=== PATIENT | male | born 1980 | race Caucasian/White ===

== ENCOUNTER 2021-10-16 08:12 | Emergency (ER) | payer OTHER ==
[2021-10-16] MEDS ORDERED: Sodium Chloride 3 ML UD NEBULES IH ONE (08:15)
[2021-10-16] MEDS ORDERED: Racepinephrine INH Solution 2.25% IH ONE ×2 (08:15→08:17)
[2021-10-16] MEDS ORDERED: solu-MEDROL 125 MG, Sterile H2O 10 ml 2 ML IV ONE ×2 (08:15)
[2021-10-16] MEDS ORDERED: solu-MEDROL ONE (08:18)
[2021-10-16] MEDS ORDERED: Sterile H2O 10 ml IJ ONE (08:18)
[2021-10-16] MEDS ORDERED: Sodium Chloride 0.9% 1000 ML 1,000 ML ONE ×2 (08:22→10:39)
[2021-10-16] MEDS ORDERED: EPINEPHRINE 1MG/ML AMP ONE (08:22)
[2021-10-16 08:28] VITALS: O2SAT 100
[2021-10-16] MEDS ORDERED: Hydromorphone 1 mg/ml Injection ONE (08:40)
[2021-10-16 08:42] LABS: A-aADO2 476; ABG HEMOGLOBIN 15.3; ABG POTASSIUM 3.9 (3.5-5.1); ABG SITE LEFT RADIAL; ALLEN TEST OK? yes; ARTERIAL BLD GAS O2 SATURATION 99.8 % (95-100); ARTERIAL BLOOD GAS FIO2 100 %; ARTERIAL BLOOD GAS PCO2 36 mmHg (35-45); ARTERIAL BLOOD GAS PO2 192 mmHg (75-100); ARTERIAL BLOOD GAS pH 7.46 (7.35-7.45); CARBOXYHEMOGLOBIN 1.2 % THgb (0.0-6.9); HCO3- 25.6 (22-28); HGB O2 SAT 97.5 g/dF (94-100); Methhemoglobin 1.2 % (1.4-1.5)
--- NOTE | 2021-10-16 08:42 | XRAY ---
Exam: AP upright portable chest film from 10/16/2021. Comparison: None. Indication: Shortness of breath. Findings: Respiratory tubing overlying the left upper lung field and external monitoring devices overlying the upper abdomen are partially seen. The heart size is normal. The jc and mediastinal structures appear unremarkable. Slight nonspecific accentuation of interstitial markings are seen within the infrahilar projections. However, I do not see an airspace infiltrate or consolidation. Minimal transverse linear density is seen within the peripheral right midlung field which may relate to the minor fissure or scant linear atelectasis/scarring. Subtle bullous changes are seen within the lung apices. Is this patient a cigarette smoker? There is minimal biapical pleural thickening/scarring. No pneumothorax or pleural effusion is seen. No acute osseous process is seen. Impression: 1. Slight nonspecific accentuation of the interstitial markings within the infrahilar lung zones. However, no air space infiltrates or other acute cardiopulmonary disease is seen. 2. Other incidental findings, as discussed above.
[2021-10-16 08:45] VITALS: BP 147/88
--- NOTE | 2021-10-16 08:46 | XRAY ---
Exam: Portable two-view series of the soft tissues of the neck from 10/16/2021. Comparison: None. Indication: Shortness of breath; rule out airway obstruction. Findings: Portable AP and lateral images of the soft tissues of the neck were obtained. The mouth is edentulous. The hypopharynx and epiglottis appear unremarkable. No prevertebral soft tissue swelling is seen. The glottic and subglottic airway appear unremarkable. No radiopaque soft tissue foreign body is seen. Calcification within the thyroid and cricoid cartilages is seen. No acute osseous process is seen. Impression: 1. No significant plain film abnormality detected.
[2021-10-16] MEDS ORDERED: Propofol 1000 mg/100 ml Bottle 100 ML IV PRN (08:49)
[2021-10-16] MEDS ORDERED: FENTANYL 500 MCG/10 ML VIAL 1,500 MCG in Sodium Chloride 0.9% 150 ML 120 ML IV PRN (08:49)
[2021-10-16] MEDS ORDERED: Versed 2 MG/2 ML Injection IV ONE (08:51)
[2021-10-16 09:21] LABS: Absolute Neutrophil Ct (ANC) 12.04 (1.4-6.9); Basophil (Absolute #) 0.03 (0-0.4); Eosinophil % 0.4 % (0.00-5.0); Eosinophil (Absolute #) 0.07 (0-0.5); Hematocrit 44.9 % (42-50); Hemoglobin 15.2 gm/dl (12.5-18.0); Lymphocyte (Absolute #) 3.02 (1.0-4.6); Lymphocytes % 18.5 % (24.0-44.0); Mean Cell Volume 84.7 fl (78-100); Mean Corpuscular Hemoglobin 28.7 pg (26-32); Mean Corpuscular Hgb Concent. 33.9 g/dl (32-36); Mean Platelet Volume 9.5 fl (7.5-11.0); Monocytes % 7.3 % (0.0-12.0); Neutrophil % 73.6 % (36.0-66.0); Platelet Count 255 K/mm3 (150-450); Red Cell Distribution Width 13.3 % (11.5-14.0); White Blood Count 16.4 K/mm3 (4.0-10.5)
[2021-10-16 09:29] LABS: ALBUMIN 4.8 g/dL (3.5-5.0); ALKALINE PHOSPHATASE 107 U/L (38-126); ANION GAP 16.2 MEQ/L (5-15); BLOOD UREA NITROGEN 8 mg/dL (9-20); CHLORIDE 102 mmol/L (98-107); Calcium 9.5 mg/dL (8.4-10.2); Carbon Dioxide 27 mmol/L (22-30); Creatinine 1 0.67 mg/dL (0.66-1.25); EST GLOMERULAR FILTRATION RATE > 60.0 ML/MIN; Glucose 122 mg/dL (74-106); Potassium 3.7 mmol/L (3.5-5.1); SGOT/AST 26 U/L (17-59); SGPT/ALT 35 U/L (0-50); SODIUM 141 mmol/L (137-145); Total Protein 7.8 g/dL (6.3-8.2)
--- NOTE | 2021-10-16 09:34 | XRAY ---
Exam: AP portable supine chest film from 0913 hours on 10/16/2021. Comparison: AP upright portable chest film from 0832 hours on 10/16/2021. Indication: ET tube placement; post NG tube placement. Findings: There has been interval placement of an endotracheal tube with the tip located about 2.4 cm superior to the luis alfredo in satisfactory position. In addition, an NG tube extends into the stomach through the gastroesophageal junction. The distal tip of the NG tube has not been included on this chest film. The heart size is normal. Some vascular calcification is seen within the aortic knob. The jc and mediastinal structures appear unremarkable. The lungs are well inflated and appear clear. Pulmonary vascularity appears within normal limits. No pneumothorax or pleural fluid is seen. No acute osseous process is seen. Impression: 1. Endotracheal tube tip appears in satisfactory position about 2.4 cm above the luis alfredo. 2. NG tube courses beyond the gastroesophageal junction into the stomach, although the tip has not been included on this chest image. 3. No acute cardiopulmonary process is seen.
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
[2021-10-16 09:45] LABS: Appearance CLEAR (CLEAR); Bilirubin NEGATIVE (NEGATIVE); Blood NEGATIVE Ery/ul (0-5); Glucose NEGATIVE (NEGATIVE); Ketones NEGATIVE (NEGATIVE); Leukocyte Esterase NEGATIVE (NEGATIVE); Mucus SLIGHT /HPF (NEGATIVE); Nitrite NEGATIVE (NEGATIVE); Protein,Urine Dip NEGATIVE (Negative); Specific Gravity 1.009 (1.005-1.025); Urobilinogen NEGATIVE mg/dL (0-1)
[2021-10-16 09:50] VITALS: PULSE 115
[2021-10-16 10:09] LABS: INFLUENZA A NEGATIVE (NEGATIVE); INFLUENZA B NEGATIVE (NEGATIVE); RESPIRATORY SYNCTIAL VIRUS NEGATIVE (Negative); SARS-CoV-2 Xpert Express NEGATIVE (NEGATIVE)
[2021-10-16] MEDS ORDERED: VERSED 5 MG/5 ML ONE (10:22)
[2021-10-16] MEDS ORDERED: BENADRYL 50 MG/ML ONE (10:29)
[2021-10-16] MEDS ORDERED: Amidate 20 MG/10 ML IV ONE (10:36)
[2021-10-16] MEDS ORDERED: Ativan 2 MG/1 ML VIAL IV ONE (10:36)
[2021-10-16] MEDS ORDERED: Ketamine HCl 50 MG/ML IV ONE (10:36)
[2021-10-16] MEDS ORDERED: VERSED 5 MG/5 ML IV ONE (10:36)
[2021-10-16] MEDS ORDERED: Quelicin Fliptop 200 MG/10 ML IV ONE (10:36)
[2021-10-16] MEDS ORDERED: Zemuron 100 MG/10 ML ONE (11:00)
== END 2021-10-16 11:23 | disposition short-term general hospital (02) ==
LOC: ED 08:12
DX: T78.3XXA Angioneurotic edema, initial encounter (principal); D72.829 Elevated white blood cell count, unspecified; R06.02 Shortness of breath; J02.9 Acute pharyngitis, unspecified; I10 Essential (primary) hypertension
CPT/HCPCS: 0241U; 31500; 36000; 36415; 36600; 51702; 70360; 71045; 80053; 81001; 82375; 82803; 84484; 85025; 87040; 93005; 93041; 94002; 94640; 94760; 94799; 96372; 96374; 96375; 99285; 99291; 99292; J0171; J0330; J1170; J1200; J2060; J2250; J2704; J2930; J3010

== ENCOUNTER 2021-11-06 10:51 | Observation (INO) | payer OTHER ==
[2021-11-06] MEDS ORDERED: Cardizem IV 50 MG/10 ML IV ONE ×2 (11:03→11:07)
[2021-11-06 11:12] LABS: Hematocrit 47.6 % (42-50); Hemoglobin 15.6 gm/dl (12.5-18.0); Mean Cell Volume 87.2 fl (78-100); Mean Corpuscular Hemoglobin 28.6 pg (26-32); Mean Corpuscular Hgb Concent. 32.8 g/dl (32-36); Mean Platelet Volume 8.6 fl (7.5-11.0); Platelet Count 478 K/mm3 (150-450); Red Blood Count 5.46 M/mm3 (4.1-5.6); Red Cell Distribution Width 14.2 % (11.5-14.0); White Blood Count 17.3 K/mm3 (4.0-10.5)
[2021-11-06 11:17] LABS: INR 0.87 (0.8-3.0); PROTIME 10.3 SECONDS (9.4-12.5)
[2021-11-06 11:20] LABS: PTT 32.7 SECONDS (25.1-36.5)
[2021-11-06 11:33] LABS: ALBUMIN 5.1 g/dL (3.5-5.0); ALKALINE PHOSPHATASE 129 U/L (38-126); ANION GAP 17.8 MEQ/L (5-15); BLOOD UREA NITROGEN 15 mg/dL (9-20); CHLORIDE 98 mmol/L (98-107); Calcium 10.8 mg/dL (8.4-10.2); Carbon Dioxide 29 mmol/L (22-30); EST GLOMERULAR FILTRATION RATE > 60.0 ML/MIN; Glucose 130 mg/dL (74-106); NT PRO BNP < 11.5 pg/mL (0-450); Potassium 4.9 mmol/L (3.5-5.1); SGOT/AST 40 U/L (17-59); SGPT/ALT 49 U/L (0-50); SODIUM 141 mmol/L (137-145); Total Protein 8.4 g/dL (6.3-8.2)
[2021-11-06 11:41] LABS: Lymphocytes 16 % (24-44); Monocyte 1 % (0.0-12.0); Neutrophils 83 % (36.-66.); Platelet Estimate NORMAL (NORMAL); Total Cells Counted 100
--- NOTE | 2021-11-06 11:43 | XRAY ---
Indication: Chest pain. Comparison: October 16, 2021. Portable chest again demonstrates normal heart, lungs, and bony thorax.
[2021-11-06] MEDS ORDERED: Zofran 4 MG/2 ML VIAL IV ONE (12:09)
[2021-11-06] MEDS ORDERED: Hydromorphone 1 mg/ml Injection IV ONE ×3 (12:09→19:14)
[2021-11-06] MEDS ORDERED: Zofran 4 MG/2 ML VIAL ONE (12:10)
[2021-11-06] MEDS ORDERED: Hydromorphone 1 mg/ml Injection ONE ×2 (12:10→15:32)
--- NOTE | 2021-11-06 13:12 | XRAY ---
Indication: Chest pain and nausea. Multiple contiguous axial images obtained through the chest using 80 cc Isovue 370 contrast and PE protocol. Comparison: None Good opacification of the pulmonary arteries to include the lobar and segmental branches. No pulmonary embolus. Heart is not enlarged. Aorta is normal in course and caliber. Small right hilar and tiny left hilar calcified nodes. No pathologic mediastinal/hilar lymphadenopathy. Lungs inflated with mild biapical subpleural cystic changes. No suspicious pulmonary mass, infiltrate, or effusion. Bony thorax intact. Limited upper abdomen demonstrates cholecystectomy clips. Impression: 1. Negative pulmonary embolus. No acute cardiopulmonary abnormalities. 2. Chronic findings including minimal biapical subpleural cystic changes and old granulomatous disease..
--- NOTE | 2021-11-06 13:46 | ERPHSYRPT ---
- History of Present Illness Historian: patient Exam Limitations: no limitations Patient Subjective Stated Complaint: chest pain x 2 days Triage Nursing Assessment: pt to ED c/o CP intermittently x 2 weeks but worse and more persistant x 2 days. rates 7/10 L lower chest. becomes sharp randomly which causes some SOB, but eases on its own after 30-60 minutes. heart sounds clear. lungs clear and equal bilaterally. Physician History: 40 yo wm w L sternal chest pain and elevated BP x2 days. Pt states that pain is 7/10, sharp, and does not radiate. He denies N/V/diaphoresis/dyspnea. Pt recently had to be intubated due to Branden inhibitor angioedema. Timing/Duration: day(s) (3 days) Activities at Onset: rest Quality: sharpness, stabbing Location: substernal Chest Pain Radiation: no radiation Severity of Pain-Max: moderate Severity of Pain-Current: moderate Modifying Factors: Worsens With: antacids, breathing, coughing, defecating, eating, exertion, lying down, morphine, movement, nitroglycerin, oxygen, palpation, rest, aspirin, sitting up, change in position Associated Symptoms: No nausea, No vomiting, No palpitations, No heartburn, No abdominal pain, No shortness of breath, No cough, No hurts to breathe, No di aphoresis, No chills, No fever, No fatigue, No weakness, No swelling/lump in chest, No syncope, No rash, No headache, No dizziness, No edema, No back pain Nitro Today/Relief: no nitro taken today Aspirin Treatment Today: no aspirin today Allergies/Adverse Reactions: propranolol Allergy (Verified 10/16/21 09:27) lisinopril Adverse Reaction (Severe, Verified 10/16/21 09:26) THROAT SWELLING Home Medications: Clonidine HCl 0.1 mg [Catapres 0.1 MG] 0.2 mg PO BID 11/06/21 [History] Cyclobenzaprine HCl 10 mg [Cyclobenzaprine 10 MG] 10 mg PO TID 11/06/21 [History] Famotidine 20 mg [Pepcid 20 MG] 20 mg PO Q12H 11/06/21 [History] Gabapentin 300 mg [Neurontin 300 mg] 600 mg PO TID 11/06/21 [History] HydrALAzine HCL 25 MG TAB [Apresoline 25 MG TABLET] 25 mg PO Q8H 11/06/21 [History] Oxycodone HCl 5 mg Ir [Oxy-IR 5 MG] 15 mg PO QID 11/06/21 [History] dilTIAZem HCl [Cardizem Cd] 180 mg PO DAILY 11/06/21 [History] Hx Tetanus, Diphtheria Vaccination/Date Given: Yes Hx Influenza Vaccination/Date Given: Yes Hx Pneumococcal Vaccination/Date Given: No Immunizations Up to Date: Yes Travel Risk - International Travel Have you traveled outside of the country in past 3 weeks: No - Coronavirus Screening Are you exhibiting any of the following symptoms?: No Close contact with a COVID-19 positive Pt in past 14-21 Days: No - Vaccine Status Have you recieved a Covid-19 vaccination: Yes 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 - Vaccination Dates Date of 2cond Vaccination (if applicable): UNKNOWN - Review of Systems Constitutional: No Symptoms Eyes: No Symptoms Ears, Nose, & Throat: No Symptoms Respiratory: No Symptoms Cardiac: No Symptoms, Chest Pain Abdominal/Gastrointestinal: No Symptoms Genitourinary Symptoms: No Symptoms Musculoskeletal: No Symptoms Skin: No Symptoms Neurological: No Symptoms Psychological: No Symptoms Endocrine: No Symptoms Hematologic/Lymphatic: No Symptoms Immunological/Allergic: No Symptoms - Past Medical History Pertinent Past Medical History: Yes Cardiac History: Hypertension Musculoskeletal History: Other Other Medical History: SPINAL INJURY. angioedema r/t lisinopril, intubated and tx to [place] - Past Surgical History Past Surgical History: Yes Gastrointestinal: Other Other Surgical History: COLOSECTOMY - Social History Smoking Status: Never smoker Exposure to second hand smoke: No Drug Use: none Patient Lives Alone: No Significant Family History: no pertinent family hx - Nursing Vital Signs Nursing Vital Signs: Initial Vital Signs Temperature 97.7 F 11/06/21 10:52 Pulse Rate 139 H 11/06/21 10:52 Respiratory Rate 16 11/06/21 10:52 Blood Pressure 126/107 11/06/21 10:52 O2 Sat by Pulse Oximetry 97 11/06/21 10:52 Pain Scale Pain Intensity 6 Tachy - Physical Exam General Appearance: no apparent distress, anxiety Eye Exam: PERRL/EOMI, eyes nml inspection Ears, Nose, Throat Exam: normal ENT inspection, TMs normal, pharynx normal, moist mucous membranes Neck Exam: normal inspection, non-tender, supple, full range of motion, No meni ngismus, No mass, No Brudzinski, No Kernig's Respiratory Exam: normal breath sounds, lungs clear, airway intact, No chest tenderness, No respiratory distress Cardiovascular Exam: tachycardia, capillary refill <2 sec, No murmur Gastrointestinal/Abdomen Exam: soft, normal bowel sounds, No tenderness Back Exam: normal inspection, normal range of motion, No CVA tenderness Extremity Exam: normal inspection, normal range of motion Neurologic Exam: alert, oriented x 3, cooperative, 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, normal mood/affect, nml cerebellar function, sensation nml, No motor deficits, No sensory deficit Skin Exam: normal color, warm, dry Lymphatic Exam: No adenopathy SpO2 Interpretation: normal SpO2: 97 O2 Delivery: Room Air - Course Nursing assessment & vital signs reviewed: Yes EKG Interpreted by Me: RATE (Sinus tach/[id number]/LVH/Normal QT-QTc/[place]/No acute ST changes) - Radiology Exams Chest X-ray Interpretation: Discussed w/ radiologist (CXR WNL) - CT Exams Chest CT Interpretation: Discussed w/radiologist (No PE or AD) Ordered Tests: Medication Summary Discontinued Medications Generic Name Dose Route Start Last Admin Trade Name Freq PRN Reason Stop Dose Admin Acetaminophen 650 mg 11/06/21 19:00 Acetaminophen 325 Mg Tablet PO 12/06/21 18:59 Q4H PRN PRN PAIN AND/OR FEVER Al Hydrox/Mg Hydrox/Simethicone 30 ml 11/06/21 19:00 Mag Hydrox/Al Hydrox/Simeth 30 Ml Udcup PO 12/06/21 18:59 Q4H PRN PRN INDIGESTION Clonidine 0.3 mg 11/06/21 14:14 11/06/21 14:34 Clonidine Hcl 0.1 Mg Tablet PO 11/06/21 14:15 0.3 mg STAT ONE Administration Clonidine Confirm 11/06/21 14:32 Clonidine Hcl 0.1 Mg Tablet Administered 11/06/21 14:33 Dose 0.3 mg .ROUTE .STK-MED ONE Clonidine 0.2 mg 11/06/21 22:52 11/07/21 11:13 Clonidine Hcl 0.1 Mg Tablet PO 12/06/21 22:51 0.2 mg BID BECKY Administration Cyclobenzaprine HCl 10 mg 11/06/21 22:52 11/07/21 13:35 Cyclobenzaprine Hcl 10 Mg Tablet PO 12/06/21 22:51 10 mg TID BECKY Administration Diltiazem HCl 15 mg 11/06/21 11:03 11/06/21 11:09 Diltiazem Hcl Iv 5 Mg/Ml Vial IV 11/06/21 11:04 15 mg STAT ONE Administration Diltiazem HCl Confirm 11/06/21 11:07 Diltiazem Hcl Iv 5 Mg/Ml Vial Administered 11/06/21 11:08 Dose 50 mg IV .STK-MED ONE Diltiazem HCl 180 mg 11/07/21 10:00 11/07/21 11:13 Diltiazem Hcl 180 Mg Cap.Sr.24h PO 12/07/21 09:59 180 mg DAILY BECKY Administration Enoxaparin Sodium 40 mg 11/07/21 10:00 11/07/21 11:12 Enoxaparin Sodium 40 Mg/0.4 Ml Syringe SQ 12/07/21 09:59 40 mg DAILY BECKY Administration Famotidine 20 mg 11/06/21 22:53 11/07/21 11:12 Famotidine 20 Mg Tablet PO 12/06/21 22:52 20 mg Q12H BECKY Administration Gabapentin 600 mg 11/06/21 22:53 11/07/21 13:34 Gabapentin 300 Mg Capsule PO 12/06/21 22:52 600 mg TID BECKY Administration Hydralazine HCl 20 mg 11/06/21 14:15 11/06/21 14:34 Hydralazine Hcl 20 Mg/Ml Vial IV 11/06/21 14:16 20 mg STAT ONE Administration Hydralazine HCl Confirm 11/06/21 14:33 Hydralazine Hcl 20 Mg/Ml Vial Administered 11/06/21 14:34 Dose 20 mg .ROUTE .STK-MED ONE Hydralazine HCl 25 mg 11/06/21 22:53 11/07/21 06:04 Hydralazine Hcl 25 Mg Tablet PO 12/06/21 22:52 Not Given Q8H BECKY Hydralazine HCl 25 mg 11/07/21 14:00 11/07/21 13:35 Hydralazine Hcl 25 Mg Tablet PO 12/07/21 13:59 25 mg Q8HT BECKY Administration Hydromorphone HCl 1 mg 11/06/21 12:09 11/06/21 12:12 Hydromorphone 1 Mg/1ml Inj 1 Mg/Ml Syringe IV 11/06/21 12:10 1 mg STAT ONE Administration Hydromorphone HCl Confirm 11/06/21 12:10 Hydromorphone 1 Mg/1ml Inj 1 Mg/Ml Syringe Administered 11/06/21 12:11 Dose 1 mg .ROUTE .STK-MED ONE Hydromorphone HCl 2 mg 11/06/21 15:27 11/06/21 15:33 Hydromorphone 1 Mg/1ml Inj 1 Mg/Ml Syringe IV 11/06/21 15:28 2 mg STAT ONE Administration Hydromorphone HCl Confirm 11/06/21 15:32 Hydromorphone 1 Mg/1ml Inj 1 Mg/Ml Syringe Administered 11/06/21 15:33 Dose 2 mg .ROUTE .STK-MED ONE Hydromorphone HCl 2 mg 11/06/21 19:02 11/07/21 15:20 Hydromorphone 1 Mg/1ml Inj 1 Mg/Ml Syringe IV 11/11/21 19:01 2 mg Q4H PRN PRN Administration PAIN Hydromorphone HCl 2 mg 11/06/21 19:14 11/06/21 19:18 Hydromorphone 1 Mg/1ml Inj 1 Mg/Ml Syringe IV 11/06/21 19:15 2 mg STAT ONE Administration Hydromorphone HCl Confirm 11/07/21 05:22 Hydromorphone 1 Mg/1ml Inj 1 Mg/Ml Syringe Administered 11/07/21 05:23 Dose 2 mg .ROUTE .STK-MED ONE Sodium Chloride 1,000 mls @ 999 mls/hr 11/06/21 17:32 11/06/21 18:37 Sodium Chloride 0.9% 1000 Ml IV 11/06/21 18:32 Infused .Q1H1M STA Infusion Sodium Chloride Confirm 11/06/21 17:34 Sodium Chloride 0.9% 1000 Ml Administered 11/06/21 17:35 Dose 1,000 mls @ ud .ROUTE .STK-MED ONE Magnesium Hydroxide 30 - 60 ml 11/06/21 19:00 Magnesium Hydroxide 30 Ml Udcup PO 12/06/21 18:59 QDP PRN CONSTIPATION Ondansetron HCl 4 mg 11/06/21 12:09 11/06/21 12:12 Ondansetron Hcl 4 Mg/2 Ml Vial IV 11/06/21 12:10 4 mg STAT ONE Administration Ondansetron HCl Confirm 11/06/21 12:10 Ondansetron Hcl 4 Mg/2 Ml Vial Administered 11/06/21 12:11 Dose 4 mg .ROUTE .STK-MED ONE Ondansetron HCl 4 mg 11/06/21 19:00 11/07/21 11:12 Ondansetron Hcl 4 Mg/2 Ml Vial IV 12/06/21 18:59 4 mg Q4H PRN PRN Administration NAUSEA/VOMITING Ondansetron HCl Confirm 11/07/21 05:05 Ondansetron Hcl 4 Mg/2 Ml Vial Administered 11/07/21 05:06 Dose 4 mg .ROUTE .STK-MED ONE Oxycodone HCl 15 mg 11/06/21 22:54 11/07/21 17:53 Oxycodone Hcl 5 Mg Ir Tab PO 11/11/21 22:53 15 mg QID BECKY Administration Senna/Docusate Sodium 2 udtab 11/06/21 19:00 Senna/Docusate Sodium 1 Udtab Tablet PO 12/06/21 18:59 BID PRN PRN CONSTIPATION Lab/Rad Data: Laboratory Result Diagrams 11/06/21 10:57 11/06/21 10:57 Laboratory Results 11/06/21 11/06/21 11/06/21 Range/Units 20:05 19:17 17:15 WBC (4.0-10.5) K/mm3 RBC (4.1-5.6) M/mm3 Hgb (12.5-18.0) gm/dl Hct (42-50) % MCV (78-100) fl MCH (26-32) pg MCHC (32-36) g/dl RDW (11.5-14.0) % Plt Count (150-450) K/mm3 MPV (7.5-11.0) fl Segmented Neutrophils (36.-66.) % Lymphocytes (Manual) (24-44) % Monocytes (Manual) (0.0-12.0) % Platelet Estimate (NORMAL) RBC Morphology PT (9.4-12.5) SECONDS INR (0.8-3.0) APTT (25.1-36.5) SECONDS Sodium (137-145) mmol/L Potassium (3.5-5.1) mmol/L Chloride (98-107) mmol/L Carbon Dioxide (22-30) mmol/L Anion Gap (5-15) MEQ/L BUN (9-20) mg/dL Creatinine (0.66-1.25) mg/dL Estimated GFR ML/MIN Glucose (74-106) mg/dL Lactic Acid (0.4-2.0) Calcium (8.4-10.2) mg/dL Total Bilirubin (0.2-1.3) mg/dL AST (17-59) U/L ALT (0-50) U/L Alkaline Phosphatase (38-126) U/L Troponin I < 0.012 (0.000-0.034) ng/mL NT-Pro-B Natriuret Pep (0-450) pg/mL Serum Total Protein (6.3-8.2) g/dL Albumin (3.5-5.0) g/dL Urine Color (YELLOW) Urine Appearance (CLEAR) Urine pH (5-6) Ur Specific [place] (1.005-1.025) Urine Protein (Negative) Urine Ketones (NEGATIVE) Urine Blood (0-5) Pedro/ul Urine Nitrite (NEGATIVE) Urine Bilirubin (NEGATIVE) Urine Urobilinogen (0-1) mg/dL Ur Leukocyte Esterase (NEGATIVE) Urine WBC (Auto) (0-5) /HPF Urine RBC (Auto) (0-2) /HPF U Epithel Cells (Auto) (FEW) /HPF Urine Bacteria (Auto) (NEGATIVE) /HPF Urine Culture Reflexed (NO) Urine Glucose (NEGATIVE) mg/dL Urine Opiates Level POSITIVE (NEGATIVE) Ur Methadone NEGATIVE (NEGATIVE) Urine Barbiturates NEGATIVE (NEGATIVE) Ur Phencyclidine (PCP) NEGATIVE (NEGATIVE) Urine Amphetamine NEGATIVE (NEGATIVE) U Benzodiazepine Level NEGATIVE (NEGATIVE) Urine Cocaine NEGATIVE (NEGATIVE) Urine Marijuana (THC) POSITIVE (NEGATIVE) Influenza Type A Ag NEGATIVE (NEGATIVE) Influenza Type B Ag NEGATIVE (NEGATIVE) RSV (PCR) NEGATIVE (Negative) SARS-CoV-2 (PCR) NEGATIVE (NEGATIVE) 11/06/21 11/06/21 11/06/21 Range/Units 17:06 17:04 15:46 WBC (4.0-10.5) K/mm3 RBC (4.1-5.6) M/mm3 Hgb (12.5-18.0) gm/dl Hct (42-50) % MCV (78-100) fl MCH (26-32) pg MCHC (32-36) g/dl RDW (11.5-14.0) % Plt Count (150-450) K/mm3 MPV (7.5-11.0) fl Segmented Neutrophils (36.-66.) % Lymphocytes (Manual) (24-44) % Monocytes (Manual) (0.0-12.0) % Platelet Estimate (NORMAL) RBC Morphology PT (9.4-12.5) SECONDS INR (0.8-3.0) APTT (25.1-36.5) SECONDS Sodium (137-145) mmol/L Potassium (3.5-5.1) mmol/L Chloride (98-107) mmol/L Carbon Dioxide (22-30) mmol/L Anion Gap (5-15) MEQ/L BUN (9-20) mg/dL Creatinine (0.66-1.25) mg/dL Estimated GFR ML/MIN Glucose (74-106) mg/dL Lactic Acid 1.2 (0.4-2.0) Calcium (8.4-10.2) mg/dL Total Bilirubin (0.2-1.3) mg/dL AST (17-59) U/L ALT (0-50) U/L Alkaline Phosphatase (38-126) U/L Troponin I < 0.012 (0.000-0.034) ng/mL NT-Pro-B Natriuret Pep (0-450) pg/mL Serum Total Protein (6.3-8.2) g/dL Albumin (3.5-5.0) g/dL Urine Color YELLOW (YELLOW) Urine Appearance CLEAR (CLEAR) Urine pH 9.0 (5-6) Ur Specific [place] 1.056 (1.005-1.025) Urine Protein NEGATIVE (Negative) Urine Ketones NEGATIVE (NEGATIVE) Urine Blood NEGATIVE (0-5) Pedro/ul Urine Nitrite NEGATIVE (NEGATIVE) Urine Bilirubin NEGATIVE (NEGATIVE) Urine Urobilinogen NEGATIVE (0-1) mg/dL Ur Leukocyte Esterase NEGATIVE (NEGATIVE) Urine WBC (Auto) 0-2 (0-5) /HPF Urine RBC (Auto) 3-5 (0-2) /HPF U Epithel Cells (Auto) NONE (FEW) /HPF Urine Bacteria (Auto) RARE (NEGATIVE) /HPF Urine Culture Reflexed NO (NO) Urine Glucose NEGATIVE (NEGATIVE) mg/dL Urine Opiates Level (NEGATIVE) Ur Methadone (NEGATIVE) Urine Barbiturates (NEGATIVE) Ur Phencyclidine (PCP) (NEGATIVE) Urine Amphetamine (NEGATIVE) U Benzodiazepine Level (NEGATIVE) Urine Cocaine (NEGATIVE) Urine Marijuana (THC) (NEGATIVE) Influenza Type A Ag (NEGATIVE) Influenza Type B Ag (NEGATIVE) RSV (PCR) (Negative) SARS-CoV-2 (PCR) (NEGATIVE) 11/06/21 11/06/21 11/06/21 Range/Units 15:37 14:20 10:57 WBC (4.0-10.5) K/mm3 RBC (4.1-5.6) M/mm3 Hgb (12.5-18.0) gm/dl Hct (42-50) % MCV (78-100) fl MCH (26-32) pg MCHC (32-36) g/dl RDW (11.5-14.0) % Plt Count (150-450) K/mm3 MPV (7.5-11.0) fl Segmented Neutrophils (36.-66.) % Lymphocytes (Manual) (24-44) % Monocytes (Manual) (0.0-12.0) % Platelet Estimate (NORMAL) RBC Morphology PT (9.4-12.5) SECONDS INR (0.8-3.0) APTT (25.1-36.5) SECONDS Sodium (137-145) mmol/L Potassium (3.5-5.1) mmol/L Chloride (98-107) mmol/L Carbon Dioxide (22-30) mmol/L Anion Gap (5-15) MEQ/L BUN (9-20) mg/dL Creatinine (0.66-1.25) mg/dL Estimated GFR ML/MIN Glucose (74-106) mg/dL Lactic Acid 2.7 H (0.4-2.0) Calcium (8.4-10.2) mg/dL Total Bilirubin (0.2-1.3) mg/dL AST (17-59) U/L ALT (0-50) U/L Alkaline Phosphatase (38-126) U/L Troponin I < 0.012 < 0.012 (0.000-0.034) ng/mL NT-Pro-B Natriuret Pep (0-450) pg/mL Serum Total Protein (6.3-8.2) g/dL Albumin (3.5-5.0) g/dL Urine Color (YELLOW) Urine Appearance (CLEAR) Urine pH (5-6) Ur Specific [place] (1.005-1.025) Urine Protein (Negative) Urine Ketones (NEGATIVE) Urine Blood (0-5) Pedro/ul Urine Nitrite (NEGATIVE) Urine Bilirubin (NEGATIVE) Urine Urobilinogen (0-1) mg/dL Ur Leukocyte Esterase (NEGATIVE) Urine WBC (Auto) (0-5) /HPF Urine RBC (Auto) (0-2) /HPF U Epithel Cells (Auto) (FEW) /HPF Urine Bacteria (Auto) (NEGATIVE) /HPF Urine Culture Reflexed (NO) Urine Glucose (NEGATIVE) mg/dL Urine Opiates Level (NEGATIVE) Ur Methadone (NEGATIVE) Urine Barbiturates (NEGATIVE) Ur Phencyclidine (PCP) (NEGATIVE) Urine Amphetamine (NEGATIVE) U Benzodiazepine Level (NEGATIVE) Urine Cocaine (NEGATIVE) Urine Marijuana (THC) (NEGATIVE) Influenza Type A Ag (NEGATIVE) Influenza Type B Ag (NEGATIVE) RSV (PCR) (Negative) SARS-CoV-2 (PCR) (NEGATIVE) 11/06/21 11/06/21 11/06/21 Range/Units 10:57 10:57 10:57 WBC 17.3 H (4.0-10.5) K/mm3 RBC 5.46 (4.1-5.6) M/mm3 Hgb 15.6 (12.5-18.0) gm/dl Hct 47.6 (42-50) % MCV 87.2 (78-100) fl MCH 28.6 (26-32) pg MCHC 32.8 (32-36) g/dl RDW 14.2 H (11.5-14.0) % Plt Count 478 H (150-450) K/mm3 MPV 8.6 (7.5-11.0) fl Segmented Neutrophils 83 H (36.-66.) % Lymphocytes (Manual) 16 L (24-44) % Monocytes (Manual) 1 (0.0-12.0) % Platelet Estimate NORMAL (NORMAL) RBC Morphology NORMAL PT 10.3 (9.4-12.5) SECONDS INR 0.87 (0.8-3.0) APTT 32.7 (25.1-36.5) SECONDS Sodium 141 (137-145) mmol/L Potassium 4.9 (3.5-5.1) mmol/L Chloride 98 (98-107) mmol/L Carbon Dioxide 29 (22-30) mmol/L Anion Gap 17.8 H (5-15) MEQ/L BUN 15 (9-20) mg/dL Creatinine 0.60 L (0.66-1.25) mg/dL Estimated GFR > 60.0 ML/MIN Glucose 130 H (74-106) mg/dL Lactic Acid (0.4-2.0) Calcium 10.8 H (8.4-10.2) mg/dL Total Bilirubin 0.50 (0.2-1.3) mg/dL AST 40 (17-59) U/L ALT 49 (0-50) U/L Alkaline Phosphatase 129 H (38-126) U/L Troponin I (0.000-0.034) ng/mL NT-Pro-B Natriuret Pep < 11.5 (0-450) pg/mL Serum Total Protein 8.4 H (6.3-8.2) g/dL Albumin 5.1 H (3.5-5.0) g/dL Urine Color (YELLOW) Urine Appearance (CLEAR) Urine pH (5-6) Ur Specific [place] (1.005-1.025) Urine Protein (Negative) Urine Ketones (NEGATIVE) Urine Blood (0-5) Pedro/ul Urine Nitrite (NEGATIVE) Urine Bilirubin (NEGATIVE) Urine Urobilinogen (0-1) mg/dL Ur Leukocyte Esterase (NEGATIVE) Urine WBC (Auto) (0-5) /HPF Urine RBC (Auto) (0-2) /HPF U Epithel Cells (Auto) (FEW) /HPF Urine Bacteria (Auto) (NEGATIVE) /HPF Urine Culture Reflexed (NO) Urine Glucose (NEGATIVE) mg/dL Urine Opiates Level (NEGATIVE) Ur Methadone (NEGATIVE) Urine Barbiturates (NEGATIVE) Ur Phencyclidine (PCP) (NEGATIVE) Urine Amphetamine (NEGATIVE) U Benzodiazepine Level (NEGATIVE) Urine Cocaine (NEGATIVE) Urine Marijuana (THC) (NEGATIVE) Influenza Type A Ag (NEGATIVE) Influenza Type B Ag (NEGATIVE) RSV (PCR) (Negative) SARS-CoV-2 (PCR) (NEGATIVE) - Progress Progress: improved Progress Note: 11/06/21 17:04 Cardizem 15mg IV w minimal decrease in BP 1mg IV Dilaudid/4mg IV Zofran 11/06/21 17:05 0.3 po Clonidine/20mg IV Hydralyzine w improvement in BP 2mg IV Dilaudid 11/06/21 18:[address] Coleman 11/06/21 19:03 Pt admitted due to persistent tachycardia Counseled pt/family regarding: lab results, diagnosis, need for follow-up, rad results - Departure Departure Disposition: Observation Clinical Impression: Chest pain, Hypertension, Chronic pain, Tachycardia Condition: Stable Critical Care Time: No
[2021-11-06] MEDS ORDERED: Catapres 0.1 MG PO ONE (14:14)
[2021-11-06] MEDS ORDERED: APRESOLINE 20 MG/ML INJ IV ONE (14:15)
[2021-11-06] MEDS ORDERED: Catapres 0.1 MG ONE (14:32)
[2021-11-06] MEDS ORDERED: APRESOLINE 20 MG/ML INJ ONE (14:33)
[2021-11-06 16:47] LABS: Appearance CLEAR (CLEAR); Bacteria RARE /HPF (NEGATIVE); Bilirubin NEGATIVE (NEGATIVE); Blood NEGATIVE Ery/ul (0-5); Glucose NEGATIVE (NEGATIVE); Ketones NEGATIVE (NEGATIVE); Leukocyte Esterase NEGATIVE (NEGATIVE); Nitrite NEGATIVE (NEGATIVE); Protein,Urine Dip NEGATIVE (Negative); Specific Gravity 1.056 (1.005-1.025); Urobilinogen NEGATIVE mg/dL (0-1); WBC 0-2 /HPF (0-5)
[2021-11-06] MEDS ORDERED: Sodium Chloride 0.9% 1000 ML 1,000 ML IV STA (17:32)
[2021-11-06] MEDS ORDERED: Sodium Chloride 0.9% 1000 ML 1,000 ML ONE (17:34)
[2021-11-06 18:30] LABS: Amphetamine,Urine NEGATIVE (NEGATIVE); Barbiturate,Urine NEGATIVE (NEGATIVE); Benzodiazepine,Urine NEGATIVE (NEGATIVE); Cocaine,Urine NEGATIVE (NEGATIVE); Methadone,Urine NEGATIVE (NEGATIVE); Opiate,Urine POSITIVE (NEGATIVE); PCP,Urine NEGATIVE (NEGATIVE); THC,Urine POSITIVE (NEGATIVE)
[2021-11-06] MEDS ORDERED: MAALOX ES 30 ML UNIT DOSE PO PRN (19:00)
[2021-11-06] MEDS ORDERED: Senokot-S Tablet PO PRN (19:00)
[2021-11-06] MEDS ORDERED: MILK OF MAGNESIA 30 ML PO PRN (19:00)
[2021-11-06] MEDS ORDERED: TYLENOL 325 MG PO PRN (19:00)
[2021-11-06 20:06] LABS: INFLUENZA A NEGATIVE (NEGATIVE); INFLUENZA B NEGATIVE (NEGATIVE); RESPIRATORY SYNCTIAL VIRUS NEGATIVE (Negative); SARS-CoV-2 Xpert Express NEGATIVE (NEGATIVE)
[2021-11-06] MEDS: Oxy-IR 5 MG PO SCH (23:15)
[2021-11-06] MEDS: Cyclobenzaprine 10 MG PO SCH (23:17)
[2021-11-06] MEDS: Apresoline 25 MG TABLET PO SCH (23:18)
[2021-11-06] MEDS: Catapres 0.1 MG PO SCH (23:18)
[2021-11-06] MEDS: Pepcid 20 MG PO SCH (23:19)
[2021-11-06] MEDS: NEURONTIN 300 MG PO SCH (23:19)
[2021-11-07] MEDS ORDERED: Zofran 4 MG/2 ML VIAL ONE (05:05)
[2021-11-07] MEDS: Zofran 4 MG/2 ML VIAL IV PRN ×2 (05:13→11:12)
[2021-11-07] MEDS ORDERED: Hydromorphone 1 mg/ml Injection ONE (05:22)
[2021-11-07] MEDS: Hydromorphone 1 mg/ml Injection IV PRN ×3 (05:25→15:20)
[2021-11-07] MEDS: Apresoline 25 MG TABLET PO SCH (06:04)
[2021-11-07 06:13] LABS: Cholesterol 224 mg/dL (50-200); HDL CHOLESTEROL 61 mg/dL (40-60); LDL, DIRECT 107 mg/dL (30-100); Risk Ratio 3.7; TRIGLYCERIDE 213 mg/dL (30-150); TROPONIN < 0.012 ng/mL (0.000-0.034)
--- NOTE | 2021-11-07 08:54 | HP ---
CHIEF COMPLAINT: Chest pain. HISTORY OF PRESENT ILLNESS: The patient is a 40-year-old white male patient who was seen approximately here two weeks ago in the hospital after having angioedema caused by RADHA inhibitor. The patient was severe enough that he needed to be intubated and was sent to [place] where he spent approximately four days before being discharged home. The patient reports approximately a week later, he began having left sided chest pain. He reports it was squeezing, releasing and it is sharp in nature. He had some shortness of breath as well as sweating but he had no fever to his knowledge. PAST MEDICAL/SURGICAL HISTORY: Otherwise significant for hypertension, chronic low back pain. The patient apparently had a spinal injury. He had a cholecystectomy. HOME MEDICATIONS: He takes pain medication on a regular basis. He is on clonidine 0.2 mg b.i.d., Flexeril 10 mg t.i.d., famotidine 20 mg every 12 hours, gabapentin 600 mg t.i.d., hydralazine 25 mg every 8 hours. He takes oxycodone immediate release 16 mg four times a day, Cardizem CD 180 mg daily. ALLERGIES: RADHA INHIBITOR. PROPRANOLOL. PHYSICAL EXAMINATION: The patient's vital signs on admission showed his temperature to be 97.7F, pulse 139, respiratory rate 16 and blood pressure 126/107. O2 saturation 97%. HEENT: Normocephalic, atraumatic. Pupils equal round reactive to light. Extraocular movements intact. Oropharynx is pink and moist. NECK: Supple without lymphadenopathy, thyromegaly or JVD. CHEST: Clear to auscultation. HEART: Rapid and fairly regular. No murmurs, rubs or gallops are heard. ABDOMEN: Soft. No palpable masses. EXTREMITIES: Without cyanosis, clubbing or edema. NEUROLOGIC: The patient is alert and oriented x3. No focal deficits were noted. SKIN: Warm and dry. LAB DATA AND TESTS: The patient had laboratory showing troponin less than 0.012. He tested for opiates and marijuana on his urine drug screen. Influenza A, B, respiratory syncytial virus and COVID were all negative. His UA showed specific gravity of 1.056 and was otherwise normal. Lactic acid 2.7 initially. Troponins serially were less than 0.012. The white count was significantly elevated at 17.3. He had a hemoglobin of 15.6 and PLT count of 478,000 and appeared to be a left shift with 83% granulocytes. His metabolic panel showed normal electrolytes. His BUN was 15, creatinine 0.6, glucose 130. His liver enzymes appeared to be normal. ProBNP levels were less than 11.5. ASSESSMENT: The patient was initially treated in the emergency room with Cardizem IV and IV hydralazine and clonidine improving his blood pressure. The patient is felt the need to be admitted to the hospital for further evaluation and management of the chest pain and elevation of his white count.
[2021-11-07] MEDS ORDERED: ENOXAPARIN SODIUM SQ SCH (10:00)
[2021-11-07] MEDS ORDERED: Cardizem CD 180 MG PO SCH (10:00)
[2021-11-07] MEDS: NEURONTIN 300 MG PO SCH ×2 (11:12→13:34)
[2021-11-07] MEDS: Pepcid 20 MG PO SCH (11:12)
[2021-11-07] MEDS: Catapres 0.1 MG PO SCH (11:13)
[2021-11-07] MEDS: Oxy-IR 5 MG PO SCH ×3 (11:13→17:53)
[2021-11-07] MEDS: Cyclobenzaprine 10 MG PO SCH ×2 (11:13→13:35)
[2021-11-07] MEDS ORDERED: Apresoline 25 MG TABLET PO SCH (14:00)
[2021-11-07 15:53] VITALS: BP 122/67; PULSE 94
--- NOTE | 2021-11-07 17:49 | XRAY ---
Indication: Headache. Multiple contiguous axial images obtained through the head prior to and following 80 cc Isovue 370 contrast. Comparison: None Normal appearing brain parenchyma, ventricles, and bony calvarium. No abnormal enhancing intra or extra-axial mass. Visualized paranasal sinuses and mastoid air cells are clear. Impression: Normal CT head with and without contrast exam.
[2021-11-09 07:45] VITALS: O2SAT 97
== END 2021-11-07 19:15 | disposition home or self-care (01) ==
LOC: ED 10:51 → MED SURG 20:54
PROVIDERS: ADMIT Family Medicine; ATTEND Family Medicine
DX: R07.9 Chest pain, unspecified (principal); R77.8 Other specified abnormalities of plasma proteins; I10 Essential (primary) hypertension; R00.0 Tachycardia, unspecified; Z20.828 Contact with and (suspected) exposure to other viral communicable diseases; Z79.899 Other long term (current) drug therapy
CPT/HCPCS: 0241U; 36000; 36415; 70470; 71045; 71260; 80053; 80061; 80307; 81001; 83605; 83721; 83880; 84484; 85025; 85610; 85730; 87040; 87077; 87086; 87186; 93005; 93041; 93268; 96374; 96375; 96376; 99285; G0378; P9612; J0360; J1170; J1650; J2405; Q3014; A9270-GY

== ENCOUNTER 2022-01-26 13:32 | Emergency (ER) | payer OTHER ==
--- NOTE | 2022-01-26 13:40 | ERPHSYRPT ---
- History of Present Illness Time Seen by Provider: 01/26/22 13:40 Historian: patient Exam Limitations: no limitations Physician History: This is a 41-year-old white male patient who has had intermittent abdominal pain that is worsened over the last 4 days. Has had associated nausea and vomiting. He denies fever. He denies chest pain. He denies cough. He denies diarrhea. He has had this type of pain in the past. He had his gallbladder removed in 2019. Approximately 4 to 5 days after he had an acute bout with pancreatitis. He has not had that type of pain since that time. He states that the pain he is experiencing now was just like his acute pancreatitis pain that he had 3 years ago. He denies alcohol use. Patient does have a history of chronic pain which he sees a pain specialist for. The pain is sharp and is in the left periumbilical area and radiates into his back on the left side. Timing/Duration: day(s) (4) Quality: sharpness, stabbing Abdominal Pain Onset Location: periumbilical (Left side) Pain Radiation: back Severity of Pain-Max: moderate Severity of Pain-Current: moderate Associated Symptoms: loss of appetite, nausea, vomiting, No chest pain, No diarrhea, No fever/chills, No shortness of breath Previous symptoms: same symptoms as today (Approximately 2019 after he had his gallbladder removed) Allergies/Adverse Reactions: bupropion Allergy (Verified 01/26/22 13:54) propranolol Allergy (Verified 01/26/22 13:52) lisinopril Adverse Reaction (Severe, Verified 01/26/22 13:52) THROAT SWELLING Home Medications: Clonidine HCl 0.1 mg [Clonidine 0.1 mg Tablet] 0.2 mg PO BID 11/06/21 [History] Cyclobenzaprine HCl 10 mg [Cyclobenzaprine 10 MG] 10 mg PO TID 11/06/21 [History] Famotidine 20 mg [Pepcid 20 MG] 20 mg PO Q12H 11/06/21 [History] Gabapentin [Neurontin ] 600 mg PO TID 11/06/21 [History] Oxycodone HCl 5 mg Ir [Oxy-IR 5 MG] 15 mg PO QID 11/06/21 [History] Hx Tetanus, Diphtheria Vaccination/Date Given: Yes Hx Influenza Vaccination/Date Given: Yes Hx Pneumococcal Vaccination/Date Given: No Travel Risk - International Travel Have you traveled outside of the country in past 3 weeks: No - Coronavirus Screening Are you exhibiting any of the following symptoms?: No Close contact with a COVID-19 positive Pt in past 14-21 Days: No - Vaccine Status Have you recieved a Covid-19 vaccination: Yes 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: [employer] - Vaccination Dates Date of 2cond Vaccination (if applicable): UNKNOWN - Review of Systems Constitutional: No Symptoms Eyes: No Symptoms Ears, Nose, & Throat: No Symptoms Respiratory: No Symptoms Cardiac: No Symptoms Abdominal/Gastrointestinal: Abdominal Pain, Nausea, Vomiting, No Diarrhea, No Constipation Genitourinary Symptoms: No Symptoms Musculoskeletal: No Symptoms Skin: No Symptoms Neurological: No Symptoms Psychological: No Symptoms Endocrine: No Symptoms Hematologic/Lymphatic: No Symptoms Immunological/Allergic: No Symptoms All Other Systems: Reviewed and Negative - Past Medical History Pertinent Past Medical History: Yes Neurological History: Migraines ENT History: No Pertinent History Cardiac History: Hypertension Respiratory History: No Pertinent History Endocrine Medical History: No Pertinent History Musculoskeletal History: Other GI Medical History: No Pertinent History History: No Pertinent History Psycho-Social History: No Pertinent History Other Medical History: SPINAL INJURY. angioedema r/t lisinopril, intubated and tx to [place] - Past Surgical History Past Surgical History: Yes Neuro Surgical History: Other Cardiac: No Pertinent History Respiratory: No Pertinent History Gastrointestinal: Other Genitourinary: No Pertinent History Male Surgical History: No Pertinent History Other Surgical History: COLOSECTOMY - Social History Smoking Status: Never smoker How long have you smoked: 2019 Exposure to second hand smoke: No Drug Use: none Patient Lives Alone: No Significant Family History: no pertinent family hx - Nursing Vital Signs Nursing Vital Signs: Initial Vital Signs Temperature 97.3 F 01/26/22 13:38 Pulse Rate 100 H 01/26/22 13:38 Respiratory Rate 22 01/26/22 13:38 Blood Pressure 159/129 01/26/22 13:38 O2 Sat by Pulse Oximetry 99 01/26/22 13:38 Pain Scale Pain Intensity 7 - Physical Exam General Appearance: mild distress, alert, anxiety, thin Eye Exam: PERRL/EOMI, eyes nml inspection Ears, Nose, Throat Exam: normal ENT inspection, moist mucous membranes Neck Exam: normal inspection, non-tender, supple, full range of motion Respiratory Exam: normal breath sounds, lungs clear, airway intact, No chest tenderness, No respiratory distress Cardiovascular Exam: regular rate/rhythm, normal heart sounds, normal peripheral pulses Gastrointestinal/Abdomen Exam: soft, normal bowel sounds, tenderness (Left of periumbilical region into his back), guarding (.), No rebound Rectal Exam: not done Back Exam: normal inspection, normal range of motion, No CVA tenderness, No vertebral tenderness Extremity Exam: normal inspection, normal range of motion, pelvis stable Neurologic Exam: alert, oriented x 3, cooperative, 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, normal mood/affect, nml cerebellar function, nml station & gait, sensation nml Skin Exam: normal color, warm, dry Lymphatic Exam: No adenopathy SpO2 Interpretation: normal O2 Delivery: Room Air - Course Nursing assessment & vital signs reviewed: Yes Ordered Tests: Active Orders 24 hr Category Date Time Status IV Insertion STAT Care 01/26/22 14:11 Active ABDOMEN AND PELVIS W/0 CONTRAS [CT] Stat Exams 01/26/22 14:50 Completed AMYLASE Stat Lab 01/26/22 14:11 Completed CBC W DIFF Stat Lab 01/26/22 14:11 Completed CMP Stat Lab 01/26/22 14:11 Completed LIPASE Stat Lab 01/26/22 14:11 Completed Lactic Acid Stat Lab 01/26/22 14:19 Completed UA W/RFX CULTURE Stat Lab 01/26/22 Completed Medication Summary Discontinued Medications Generic Name Dose Route Start Last Admin Trade Name Araceli PRN Reason Stop Dose Admin Hydromorphone HCl 1 mg 01/26/22 14:11 01/26/22 14:18 Hydromorphone 1 Mg/1ml Inj 1 Mg/Ml Syringe IV 01/26/22 14:12 1 mg STAT ONE Administration Hydromorphone HCl Confirm 01/26/22 14:15 Hydromorphone 1 Mg/1ml Inj 1 Mg/Ml Syringe Administered 01/26/22 14:16 Dose 1 mg .ROUTE .STK-MED ONE Hydromorphone HCl 1 mg 01/26/22 16:17 01/26/22 16:24 Hydromorphone 1 Mg/1ml Inj 1 Mg/Ml Syringe IV 01/26/22 16:18 1 mg STAT ONE Administration Hydromorphone HCl Confirm 01/26/22 16:23 Hydromorphone 1 Mg/1ml Inj 1 Mg/Ml Syringe Administered 01/26/22 16:24 Dose 1 mg .ROUTE .STK-MED ONE Sodium Chloride 1,000 mls @ 999 mls/hr 01/26/22 14:11 01/26/22 15:20 Sodium Chloride 0.9% 1000 Ml IV 01/26/22 15:11 Infused .Q1H1M STA Infusion Sodium Chloride Confirm 01/26/22 14:15 Sodium Chloride 0.9% 1000 Ml Administered 01/26/22 14:16 Dose 1,000 mls @ ud .ROUTE .STK-MED ONE Sodium Chloride 500 mls @ 500 mls/hr 01/26/22 15:57 01/26/22 17:20 Sodium Chloride 0.9% 500 Ml IV 01/26/22 16:56 Infused .Q1H ONE Infusion Sodium Chloride Confirm 01/26/22 16:10 Sodium Chloride 0.9% 500 Ml Administered 01/26/22 16:11 Dose 500 mls @ ud IV .STK-MED ONE Ondansetron HCl 4 mg 01/26/22 14:11 01/26/22 14:17 Ondansetron Hcl 4 Mg/2 Ml Vial IV 01/26/22 14:12 4 mg STAT ONE Administration Ondansetron HCl Confirm 01/26/22 14:15 Ondansetron Hcl 4 Mg/2 Ml Vial Administered 01/26/22 14:16 Dose 4 mg .ROUTE .STK-MED ONE Lab/Rad Data: Laboratory Result Diagrams 01/26/22 14:11 01/26/22 14:11 Laboratory Results 01/26/22 01/26/22 01/26/22 Range/Units Unknown 14:19 14:11 WBC (4.0-10.5) x10^3/uL RBC (4.1-5.6) x10^6/uL Hgb (12.5-18.0) g/dL Hct (42-50) % MCV (78-100) fL MCH (26-32) pg MCHC (32-36) g/dL RDW (11.5-14.0) % Plt Count (150-450) x10^3/uL MPV (7.5-11.0) fL Gran % (36.0-66.0) % Immature Gran % (Auto) (0.00-0.4) % Nucleat RBC Rel Count (0.00-0.1) % Eos # (Auto) (0-0.5) x10^3/uL Immature Gran # (Auto) (0.00-0.03) x10^3u/L Absolute Lymphs (auto) (1.0-4.6) x10^3/uL Absolute Monos (auto) (0.0-1.3) x10^3/uL Absolute Nucleated RBC (0.00-0.01) x10^3u/L Lymphocytes % (24.0-44.0) % Monocytes % (0.0-12.0) % Eosinophils % (0.00-5.0) % Basophils % (0.0-0.4) % Absolute Granulocytes (1.4-6.9) x10^3/uL Basophils # (0-0.4) x10^3/uL Sodium 140 (137-145) mmol/L Potassium 4.0 (3.5-5.1) mmol/L Chloride 103 (98-107) mmol/L Carbon Dioxide 23 (22-30) mmol/L Anion Gap 19.2 H (5-15) MEQ/L BUN 9 (9-20) mg/dL Creatinine 0.66 (0.66-1.25) mg/dL Estimated GFR > 60.0 ML/MIN Glucose 110 H (74-106) mg/dL Lactic Acid 2.2 H (0.4-2.0) Calcium 10.7 H (8.4-10.2) mg/dL Total Bilirubin 1.00 (0.2-1.3) mg/dL AST 25 (17-59) U/L ALT 31 (0-50) U/L Alkaline Phosphatase 111 (38-126) U/L Serum Total Protein 8.7 H (6.3-8.2) g/dL Albumin 5.6 H (3.5-5.0) g/dL Amylase 70 (30-110) U/L Lipase 55 (23-300) U/L Urinalys Dipstick Clnc MAIN LAB Urine Color YELLOW (YELLOW) Urine Appearance CLEAR (CLEAR) Urine pH 8.5 (5-6) Ur Specific [place] 1.015 (1.005-1.025) POC Urine Protein Conf NEGATIVE (Negative) Urine Ketones NEGATIVE (NEGATIVE) Urine Nitrite NEGATIVE (NEGATIVE) Urine Bilirubin NEGATIVE (NEGATIVE) Urine Urobilinogen 1 (0-1) mg/dL Urine Leukocytes NEGATIVE (NEGATIVE) Urine WBC (Auto) NONE (0-5) /HPF Urine RBC (Auto) NONE (0-2) /HPF U Epithel Cells (Auto) NONE (FEW) /HPF Urine Bacteria (Auto) NONE (NEGATIVE) /HPF Urine RBC NEGATIVE (0-5) Pedro/ul Urine Mucus (Auto) SLIGHT (NEGATIVE) /HPF Ur Culture Indicated? NO Urine Glucose NEGATIVE (NEGATIVE) mg/dL 01/26/22 Range/Units 14:11 WBC 11.6 H (4.0-10.5) x10^3/uL RBC 6.09 H (4.1-5.6) x10^6/uL Hgb 17.3 (12.5-18.0) g/dL Hct 51.3 H (42-50) % MCV 84.2 (78-100) fL MCH 28.4 (26-32) pg MCHC 33.7 (32-36) g/dL RDW 13.2 (11.5-14.0) % Plt Count 362 (150-450) x10^3/uL MPV 9.6 (7.5-11.0) fL Gran % 72.3 H (36.0-66.0) % Immature Gran % (Auto) 0.4 (0.00-0.4) % Nucleat RBC Rel Count 0.0 (0.00-0.1) % Eos # (Auto) 0.04 (0-0.5) x10^3/uL Immature Gran # (Auto) 0.05 H (0.00-0.03) x10^3u/L Absolute Lymphs (auto) 2.41 (1.0-4.6) x10^3/uL Absolute Monos (auto) 0.67 (0.0-1.3) x10^3/uL Absolute Nucleated RBC 0.00 (0.00-0.01) x10^3u/L Lymphocytes % 20.8 L (24.0-44.0) % Monocytes % 5.8 (0.0-12.0) % Eosinophils % 0.3 (0.00-5.0) % Basophils % 0.4 (0.0-0.4) % Absolute Granulocytes 8.34 H (1.4-6.9) x10^3/uL Basophils # 0.05 (0-0.4) x10^3/uL Sodium (137-145) mmol/L Potassium (3.5-5.1) mmol/L Chloride (98-107) mmol/L Carbon Dioxide (22-30) mmol/L Anion Gap (5-15) MEQ/L BUN (9-20) mg/dL Creatinine (0.66-1.25) mg/dL Estimated GFR ML/MIN Glucose (74-106) mg/dL Lactic Acid (0.4-2.0) Calcium (8.4-10.2) mg/dL Total Bilirubin (0.2-1.3) mg/dL AST (17-59) U/L ALT (0-50) U/L Alkaline Phosphatase (38-126) U/L Serum Total Protein (6.3-8.2) g/dL Albumin (3.5-5.0) g/dL Amylase (30-110) U/L Lipase (23-300) U/L Urinalys Dipstick Clnc Urine Color (YELLOW) Urine Appearance (CLEAR) Urine pH (5-6) Ur Specific [place] (1.005-1.025) POC Urine Protein Conf (Negative) Urine Ketones (NEGATIVE) Urine Nitrite (NEGATIVE) Urine Bilirubin (NEGATIVE) Urine Urobilinogen (0-1) mg/dL Urine Leukocytes (NEGATIVE) Urine WBC (Auto) (0-5) /HPF Urine RBC (Auto) (0-2) /HPF U Epithel Cells (Auto) (FEW) /HPF Urine Bacteria (Auto) (NEGATIVE) /HPF Urine RBC (0-5) Pedro/ul Urine Mucus (Auto) (NEGATIVE) /HPF Ur Culture Indicated? Urine Glucose (NEGATIVE) mg/dL - Progress Progress: improved, pain not gone completely Progress Note: 01/26/22 16:34 CAT scan of the abdomen pelvis without contrast shows a nonobstructing left renal micro calculus. Otherwise the remainder of the CAT scan of the abdomen and pelvis is normal - Departure Departure Disposition: Home Clinical Impression: Abdominal pain, Vomiting Condition: Stable Critical Care Time: No Referrals: EAV GUZMAN, [employer] [Primary Care Provider] - Follow up/PCP as directed Additional Instructions: Decrease your diet to clear liquid diet. Advance your diet slowly once you are tolerating clear liquids well. Follow-up with your pain management doctor for pain control as an outpatient. Prescriptions: Hydrocodone/APAP 5/325 [[place] 5/325 mg] 1 each PO Q8H PRN PRN #6 tablet MDD 3 PRN Reason: Pain Promethazine HCl 25 mg [Phenergan 25 mg] 25 mg PO Q8H PRN PRN #10 tablet PRN Reason: Nausea/Vomiting
[2022-01-26] MEDS ORDERED: Sodium Chloride 0.9% 1000 ML 1,000 ML IV STA (14:11)
[2022-01-26] MEDS ORDERED: Zofran 4 MG/2 ML VIAL IV ONE (14:11)
[2022-01-26] MEDS ORDERED: Hydromorphone 1 mg/ml Injection IV ONE ×2 (14:11→16:17)
[2022-01-26] MEDS ORDERED: Sodium Chloride 0.9% 1000 ML 1,000 ML ONE (14:15)
[2022-01-26] MEDS ORDERED: Zofran 4 MG/2 ML VIAL ONE (14:15)
[2022-01-26] MEDS ORDERED: Hydromorphone 1 mg/ml Injection ONE ×2 (14:15→16:23)
[2022-01-26 14:27] LABS: ALBUMIN 5.6 g/dL (3.5-5.0); ALKALINE PHOSPHATASE 111 U/L (38-126); AMYLASE 70 U/L (30-110); ANION GAP 19.2 MEQ/L (5-15); BLOOD UREA NITROGEN 9 mg/dL (9-20); CHLORIDE 103 mmol/L (98-107); Calcium 10.7 mg/dL (8.4-10.2); Carbon Dioxide 23 mmol/L (22-30); Creatinine 1 0.66 mg/dL (0.66-1.25); EST GLOMERULAR FILTRATION RATE > 60.0 ML/MIN; Glucose 110 mg/dL (74-106); LIPASE 55 U/L (23-300); SGOT/AST 25 U/L (17-59); SGPT/ALT 31 U/L (0-50); SODIUM 140 mmol/L (137-145); Total Protein 8.7 g/dL (6.3-8.2)
--- NOTE | 2022-01-26 15:06 | XRAY ---
Indication: Left abdomen pain and vomiting. History pancreatitis and renal stones. Normal amylase and lipase. Multiple contiguous images obtained through the abdomen and pelvis without contrast. Comparison: None Lung bases clear. Heart not enlarged. Noncontrasted stomach and bowel loops nonobstructed with normal appendix. Incidental nonobstructing left renal punctate calculus and cholecystectomy clips. No free fluid/air. Remaining liver, pancreas, spleen, adrenal glands, kidneys, ureters, and bladder are unremarkable for noncontrast exam. Minimal aortic calcifications without AAA. Osseous structures intact with mild lumbosacral junction degenerative disc disease. No ventral or inguinal hernias. Impression: 1. Nonobstructing left renal micro-calculus. 2. Remaining CT abdomen/pelvis without contrast exam is negative.
[2022-01-26] MEDS ORDERED: Sodium Chloride 0.9% 500 ML 500 ML IV ONE ×2 (15:57→16:10)
[2022-01-26 16:15] VITALS: PULSE 110; O2SAT 98
[2022-01-26 17:00] LABS: Absolute Neutrophil Ct (ANC) 8.34 x10^3/uL (1.4-6.9); Basophil (Absolute #) 0.05 x10^3/uL (0-0.4); Eosinophil % 0.3 % (0.00-5.0); Eosinophil (Absolute #) 0.04 x10^3/uL (0-0.5); Hematocrit 51.3 % (42-50); Hemoglobin 17.3 g/dL (12.5-18.0); Lymphocyte (Absolute #) 2.41 x10^3/uL (1.0-4.6); Lymphocytes % 20.8 % (24.0-44.0); Mean Cell Volume 84.2 fL (78-100); Mean Corpuscular Hemoglobin 28.4 pg (26-32); Mean Corpuscular Hgb Concent. 33.7 g/dL (32-36); Mean Platelet Volume 9.6 fL (7.5-11.0); Monocyte (Absolute #) 0.67 x10^3/uL (0.0-1.3); Monocytes % 5.8 % (0.0-12.0); Neutrophil % 72.3 % (36.0-66.0); Platelet Count 362 x10^3/uL (150-450); Red Blood Count 6.09 x10^6/uL (4.1-5.6); Red Cell Distribution Width 13.2 % (11.5-14.0); White Blood Count 11.6 x10^3/uL (4.0-10.5)
[2022-01-26 17:08] LABS: Appearance CLEAR (CLEAR); Bilirubin NEGATIVE (NEGATIVE); Dipstick done @ ? MAIN LAB; Glucose NEGATIVE (NEGATIVE); Ketones NEGATIVE (NEGATIVE); Nitrite NEGATIVE (NEGATIVE); Ph 8.5 (5-6); Protein,Urine Dip NEGATIVE (Negative); RBC NEGATIVE Ery/ul (0-5); Specific Gravity 1.015 (1.005-1.025); Urobilinogen 1 mg/dL (0-1)
[2022-01-26 17:09] LABS: Mucus SLIGHT /HPF (NEGATIVE); Urine Cultured Indicated? NO
[2022-01-26 17:30] VITALS: BP 153/123
== END 2022-01-26 17:36 | disposition home or self-care (01) ==
LOC: ED 13:32
DX: R10.33 Periumbilical pain (principal); R11.2 Nausea with vomiting, unspecified; I10 Essential (primary) hypertension; Z79.891 Long term (current) use of opiate analgesic; Z79.899 Other long term (current) drug therapy
CPT/HCPCS: 36000; 36415; 74176; 80053; 81015; 82150; 83605; 83690; 85025; 96360; 96374; 96375; 96376; 99284; J1170; J2405

== ENCOUNTER → 2022-01-26 13:33 | Emergency (ER) | payer OTHER | END | disposition left against medical advice (07) | LOC: ED 13:33 | DX: Z53.9 Procedure and treatment not carried out, unspecified reason (principal) ==

== ENCOUNTER 2022-02-05 09:59 | Emergency (ER) | payer OTHER ==
[2022-02-05 10:59] LABS: Absolute Neutrophil Ct (ANC) 5.77 x10^3/uL (1.4-6.9); Basophil (Absolute #) 0.05 x10^3/uL (0-0.4); Eosinophil % 0.8 % (0.00-5.0); Eosinophil (Absolute #) 0.07 x10^3/uL (0-0.5); Hematocrit 48.4 % (42-50); Hemoglobin 15.6 g/dL (12.5-18.0); Lymphocyte (Absolute #) 2.01 x10^3/uL (1.0-4.6); Lymphocytes % 23.6 % (24.0-44.0); Mean Cell Volume 86.3 fL (78-100); Mean Corpuscular Hemoglobin 27.8 pg (26-32); Mean Corpuscular Hgb Concent. 32.2 g/dL (32-36); Mean Platelet Volume 9.5 fL (7.5-11.0); Monocyte (Absolute #) 0.58 x10^3/uL (0.0-1.3); Monocytes % 6.8 % (0.0-12.0); Neutrophil % 67.6 % (36.0-66.0); Platelet Count 265 x10^3/uL (150-450); Red Blood Count 5.61 x10^6/uL (4.1-5.6); Red Cell Distribution Width 13.2 % (11.5-14.0); White Blood Count 8.5 x10^3/uL (4.0-10.5)
[2022-02-05 11:07] LABS: ALBUMIN 5.1 g/dL (3.5-5.0); ALKALINE PHOSPHATASE 84 U/L (38-126); AMYLASE 84 U/L (30-110); ANION GAP 15.9 MEQ/L (5-15); BLOOD UREA NITROGEN 15 mg/dL (9-20); CHLORIDE 101 mmol/L (98-107); Calcium 10.1 mg/dL (8.4-10.2); Carbon Dioxide 28 mmol/L (22-30); Creatinine 1 0.65 mg/dL (0.66-1.25); EST GLOMERULAR FILTRATION RATE > 60.0 ML/MIN; Glucose 100 mg/dL (74-106); LIPASE 46 U/L (23-300); Potassium 4.6 mmol/L (3.5-5.1); SGOT/AST 30 U/L (17-59); SGPT/ALT 38 U/L (0-50); SODIUM 141 mmol/L (137-145); Total Protein 8.1 g/dL (6.3-8.2)
[2022-02-05] MEDS ORDERED: SUBLIMAZE 100 MCG/2 ML IV ONE (11:11)
[2022-02-05] MEDS ORDERED: Zofran 4 MG/2 ML VIAL IV ONE (11:12)
[2022-02-05] MEDS ORDERED: Zofran 4 MG/2 ML VIAL ONE (11:19)
[2022-02-05] MEDS ORDERED: SUBLIMAZE 100 MCG/2 ML ONE (11:19)
--- NOTE | 2022-02-05 11:19 | ERPHSYRPT ---
- History of Present Illness Historian: patient Exam Limitations: no limitations Patient Subjective Stated Complaint: pt c/o abdominal pain for approx 2 weeks and came to the ER somewhere in between and had a clear liquid diet and it settled down a little bit but yesterday morning the pain came back and today it's unbearable, pain is in the LLQ, pt is a self cather and he states that for the past couple days after he caths, urine then comes out on its own that would probably fill a specimen cup, he has been self cathing for 3 years and this has never happened before Triage Nursing Assessment: Pt was brought to the ER by his , hypertensive, tachycardic, rates pain as 9.5/10, guarding abdomen, appears to be in severe pain, sweating, stated that he passed out at home from the pain and hit his right side of his head, coughing up green mucus, pt is a parapalegic, still has appendix, pulses normal Physician History: 41 yo wm w LLQ pain x 2 wks. Pt states that pain is sharp, stabbing and 10 on scale. He has nausea wo vomiting/diarrh ea/melena/hematochezia/dysuria/hematuria/fever/chest pain/cough/dyspnea. Pain does not radiate. He has h/o pancreatitis after cholecystectomy and self caths due to L5-S1 injury in the . Pt seen 01/26/22 for same complaint. Timing/Duration: other (2 wks) Quality: sharpness, stabbing Abdominal Pain Onset Location: LLQ Pain Radiation: no radiation Severity of Pain-Max: severe Severity of Pain-Current: severe Modifying Factors: Improves With: nothing Associated Symptoms: loss of appetite, nausea, No back, No chest pain, No diaphoresis, No diarrhea, No fever/chills, No fatigue, No headache, No heartburn, No neck pain, No rash, No shortness of breath, No syncope, No testicular pain, No vomiting, No weakness Previous symptoms: same symptoms as today Allergies/Adverse Reactions: bupropion Allergy (Verified 02/05/22 10:25) propranolol Allergy (Verified 02/05/22 10:25) lisinopril Adverse Reaction (Severe, Verified 02/05/22 10:25) THROAT SWELLING Home Medications: Clonidine HCl 0.1 mg [Clonidine 0.1 mg Tablet] 0.2 mg PO BID 11/06/21 [History] Cyclobenzaprine HCl 10 mg [Cyclobenzaprine 10 MG] 10 mg PO TID 11/06/21 [History] Famotidine 20 mg [Pepcid 20 MG] 20 mg PO Q12H 11/06/21 [History] Gabapentin [Neurontin ] 600 mg PO TID 11/06/21 [History] Oxycodone HCl 5 mg Ir [Oxy-IR 5 MG] 15 mg PO UD 11/06/21 [History] HydrALAzine HCL 25 MG TAB [Apresoline 25 MG TABLET] 25 mg PO Q8H 02/05/22 [History] dilTIAZem HCL [Diltiazem 24Hr ER (Xr)] 180 mg PO DAILY 02/05/22 [History] Hx Tetanus, Diphtheria Vaccination/Date Given: Yes Hx Influenza Vaccination/Date Given: Yes Hx Pneumococcal Vaccination/Date Given: No Travel Risk - International Travel Have you traveled outside of the country in past 3 weeks: No - Coronavirus Screening Are you exhibiting any of the following symptoms?: No Close contact with a COVID-19 positive Pt in past 14-21 Days: No - Vaccine Status Have you recieved a Covid-19 vaccination: Yes [employer]: [employer] - Vaccination Dates Date of 2cond Vaccination (if applicable): UNKNOWN - Review of Systems Constitutional: No Symptoms Eyes: No Symptoms Ears, Nose, & Throat: No Symptoms Respiratory: No Symptoms Cardiac: No Symptoms Abdominal/Gastrointestinal: Abdominal Pain, Nausea, No Vomiting, No Diarrhea, No Constipation, No Hematemesis, No Hematochezia, No Melena, No Dysphagia, No Appetite Changes Genitourinary Symptoms: No Symptoms Musculoskeletal: No Symptoms Skin: No Symptoms Neurological: No Symptoms Psychological: No Symptoms Endocrine: No Symptoms Hematologic/Lymphatic: No Symptoms Immunological/Allergic: No Symptoms - Past Medical History Pertinent Past Medical History: Yes Neurological History: Migraines ENT History: No Pertinent History Cardiac History: Hypertension Respiratory History: No Pertinent History Endocrine Medical History: No Pertinent History Musculoskeletal History: Other GI Medical History: No Pertinent History History: No Pertinent History Psycho-Social History: No Pertinent History Other Medical History: SPINAL INJURY. angioedema r/t lisinopril, intubated and tx to [facility] - Past Surgical History Past Surgical History: Yes Neuro Surgical History: Other Cardiac: No Pertinent History Respiratory: No Pertinent History Gastrointestinal: Other Genitourinary: No Pertinent History Male Surgical History: No Pertinent History Other Surgical History: COLOSECTOMY - Social History Smoking Status: Never smoker How long have you smoked: 2019 Exposure to second hand smoke: No Drug Use: none Patient Lives Alone: No Significant Family History: no pertinent family hx - Nursing Vital Signs Nursing Vital Signs: Initial Vital Signs Temperature 98.3 F 02/05/22 10:13 Pulse Rate 121 H 02/05/22 10:13 Blood Pressure 196/178 02/05/22 10:13 O2 Sat by Pulse Oximetry 99 02/05/22 10:13 Pain Scale Pain Intensity 5 Tachy/hypertensive - Physical Exam General Appearance: no apparent distress (In pain) Eye Exam: PERRL/EOMI, eyes nml inspection Ears, Nose, Throat Exam: normal ENT inspection, TMs normal, pharynx normal, moist mucous membranes Neck Exam: normal inspection, non-tender, supple, full range of motion, No meningismus, No mass, No Brudzinski, No Kernig's, No carotid bruit Respiratory Exam: normal breath sounds, lungs clear, airway intact, No respiratory distress Cardiovascular Exam: tachycardia, capillary refill <2 sec Gastrointestinal/Abdomen Exam: soft, normal bowel sounds, tenderness (LLQ TTP/No guarding or rebound) Back Exam: normal inspection, normal range of motion, No CVA tenderness, No vertebral tenderness Extremity Exam: normal inspection, normal range of motion Neurologic Exam: alert, oriented x 3, cooperative, [place] attorney II-XII nml as tested, normal mood/affect, nml cerebellar function, nml station & gait, sensation nml, No motor deficits, No sensory deficit Skin Exam: normal color, warm, dry, No rash Lymphatic Exam: No adenopathy SpO2 Interpretation: normal SpO2: 98 O2 Delivery: Room Air - Course Nursing assessment & vital signs reviewed: Yes - CT Exams Abdomen/Pelvis CT Interpretation: Discussed w/radiologist (Nothing acute) Ordered Tests: Active Orders 24 hr Category Date Time Status IV Insertion STAT Care 02/05/22 10:36 Completed ABDOMEN AND PELVIS W/0 CONTRAS [CT] Stat Exams 02/05/22 11:52 Completed AMYLASE Stat Lab 02/05/22 10:53 Completed CBC W DIFF Stat Lab 02/05/22 10:53 Completed CMP Stat Lab 02/05/22 10:53 Completed LIPASE Stat Lab 02/05/22 10:53 Completed Lactic Acid Stat Lab 02/05/22 10:48 Completed TROPONIN Q3H Lab 02/05/22 10:53 Completed UA W/RFX CULTURE Stat Lab 02/05/22 12:00 Completed Medication Summary Discontinued Medications Generic Name Dose Route Start Last Admin Trade Name Araceli PRN Reason Stop Dose Admin Fentanyl Citrate 100 mcg 02/05/22 11:11 02/05/22 11:20 Fentanyl Citrate 100 Mcg/2 Ml* Vial IV 02/05/22 11:12 100 mcg STAT ONE Administration Fentanyl Citrate Confirm 02/05/22 11:19 Fentanyl Citrate 100 Mcg/2 Ml* Vial Administered 02/05/22 11:20 Dose 100 mcg .ROUTE .STK-MED ONE Hydromorphone HCl 1 mg 02/05/22 13:44 02/05/22 14:05 Hydromorphone 1 Mg/1ml Inj 1 Mg/Ml Syringe IV 02/05/22 13:45 1 mg STAT ONE Administration Hydromorphone HCl Confirm 02/05/22 14:05 Hydromorphone 1 Mg/1ml Inj 1 Mg/Ml Syringe Administered 02/05/22 14:06 Dose 1 mg .ROUTE .STK-MED ONE Sodium Chloride 1,000 mls @ 999 mls/hr 02/05/22 11:26 02/05/22 12:47 Sodium Chloride 0.9% 1000 Ml IV 02/05/22 12:26 Infused .Q1H1M STA Infusion Sodium Chloride Confirm 02/05/22 11:27 Sodium Chloride 0.9% 1000 Ml Administered 02/05/22 11:28 Dose 1,000 mls @ ud .ROUTE .STK-MED ONE Ondansetron HCl 4 mg 02/05/22 11:12 02/05/22 11:20 Ondansetron Hcl 4 Mg/2 Ml Vial IV 02/05/22 11:13 4 mg STAT ONE Administration Ondansetron HCl Confirm 02/05/22 11:19 Ondansetron Hcl 4 Mg/2 Ml Vial Administered 02/05/22 11:20 Dose 4 mg .ROUTE .STK-MED ONE Lab/Rad Data: Laboratory Result Diagrams 02/05/22 10:53 02/05/22 10:53 Laboratory Results 02/05/22 02/05/22 02/05/22 Range/Units 12:00 10:53 10:53 WBC (4.0-10.5) x10^3/uL RBC (4.1-5.6) x10^6/uL Hgb (12.5-18.0) g/dL Hct (42-50) % MCV (78-100) fL MCH (26-32) pg MCHC (32-36) g/dL RDW (11.5-14.0) % Plt Count (150-450) x10^3/uL MPV (7.5-11.0) fL Gran % (36.0-66.0) % Immature Gran % (Auto) (0.00-0.4) % Nucleat RBC Rel Count (0.00-0.1) % Eos # (Auto) (0-0.5) x10^3/uL Immature Gran # (Auto) (0.00-0.03) x10^3u/L Absolute Lymphs (auto) (1.0-4.6) x10^3/uL Absolute Monos (auto) (0.0-1.3) x10^3/uL Absolute Nucleated RBC (0.00-0.01) x10^3u/L Lymphocytes % (24.0-44.0) % Monocytes % (0.0-12.0) % Eosinophils % (0.00-5.0) % Basophils % (0.0-0.4) % Absolute Granulocytes (1.4-6.9) x10^3/uL Basophils # (0-0.4) x10^3/uL Sodium 141 (137-145) mmol/L Potassium 4.6 (3.5-5.1) mmol/L Chloride 101 (98-107) mmol/L Carbon Dioxide 28 (22-30) mmol/L Anion Gap 15.9 H (5-15) MEQ/L BUN 15 (9-20) mg/dL Creatinine 0.65 L (0.66-1.25) mg/dL Estimated GFR > 60.0 ML/MIN Glucose 100 (74-106) mg/dL Lactic Acid (0.4-2.0) Calcium 10.1 (8.4-10.2) mg/dL Total Bilirubin 0.50 (0.2-1.3) mg/dL AST 30 (17-59) U/L ALT 38 (0-50) U/L Alkaline Phosphatase 84 (38-126) U/L Troponin I < 0.012 (0.000-0.034) ng/mL Serum Total Protein 8.1 (6.3-8.2) g/dL Albumin 5.1 H (3.5-5.0) g/dL Amylase 84 (30-110) U/L Lipase 46 (23-300) U/L Urinalys Dipstick Clnc MAIN LAB Urine Color LT.YELLOW (YELLOW) Urine Appearance CLEAR (CLEAR) Urine pH 8.5 (5-6) Ur Specific [place] 1.020 (1.005-1.025) POC Urine Protein Conf NEGATIVE (Negative) Urine Ketones NEGATIVE (NEGATIVE) Urine Nitrite NEGATIVE (NEGATIVE) Urine Bilirubin NEGATIVE (NEGATIVE) Urine Urobilinogen 0.2 (0-1) mg/dL Urine Leukocytes NEGATIVE (NEGATIVE) Urine WBC (Auto) 3-5 (0-5) /HPF Urine RBC (Auto) 11-15 (0-2) /HPF U Epithel Cells (Auto) NONE (FEW) /HPF Urine Bacteria (Auto) NONE (NEGATIVE) /HPF Urine RBC SMALL (0-5) Pedro/ul Unidentified Crystals 2-5 (NEGATIVE) /HPF Ur Culture Indicated? NO Urine Glucose NEGATIVE (NEGATIVE) mg/dL 02/05/22 02/05/22 Range/Units 10:53 10:48 WBC 8.5 (4.0-10.5) x10^3/uL RBC 5.61 H (4.1-5.6) x10^6/uL Hgb 15.6 (12.5-18.0) g/dL Hct 48.4 (42-50) % MCV 86.3 (78-100) fL MCH 27.8 (26-32) pg MCHC 32.2 (32-36) g/dL RDW 13.2 (11.5-14.0) % Plt Count 265 (150-450) x10^3/uL MPV 9.5 (7.5-11.0) fL Gran % 67.6 H (36.0-66.0) % Immature Gran % (Auto) 0.6 H (0.00-0.4) % Nucleat RBC Rel Count 0.0 (0.00-0.1) % Eos # (Auto) 0.07 (0-0.5) x10^3/uL Immature Gran # (Auto) 0.05 H (0.00-0.03) x10^3u/L Absolute Lymphs (auto) 2.01 (1.0-4.6) x10^3/uL Absolute Monos (auto) 0.58 (0.0-1.3) x10^3/uL Absolute Nucleated RBC 0.00 (0.00-0.01) x10^3u/L Lymphocytes % 23.6 L (24.0-44.0) % Monocytes % 6.8 (0.0-12.0) % Eosinophils % 0.8 (0.00-5.0) % Basophils % 0.6 (0.0-0.4) % Absolute Granulocytes 5.77 (1.4-6.9) x10^3/uL Basophils # 0.05 (0-0.4) x10^3/uL Sodium (137-145) mmol/L Potassium (3.5-5.1) mmol/L Chloride (98-107) mmol/L Carbon Dioxide (22-30) mmol/L Anion Gap (5-15) MEQ/L BUN (9-20) mg/dL Creatinine (0.66-1.25) mg/dL Estimated GFR ML/MIN Glucose (74-106) mg/dL Lactic Acid 1.0 (0.4-2.0) Calcium (8.4-10.2) mg/dL Total Bilirubin (0.2-1.3) mg/dL AST (17-59) U/L ALT (0-50) U/L Alkaline Phosphatase (38-126) U/L Troponin I (0.000-0.034) ng/mL Serum Total Protein (6.3-8.2) g/dL Albumin (3.5-5.0) g/dL Amylase (30-110) U/L Lipase (23-300) U/L Urinalys Dipstick Clnc Urine Color (YELLOW) Urine Appearance (CLEAR) Urine pH (5-6) Ur Specific [place] (1.005-1.025) POC Urine Protein Conf (Negative) Urine Ketones (NEGATIVE) Urine Nitrite (NEGATIVE) Urine Bilirubin (NEGATIVE) Urine Urobilinogen (0-1) mg/dL Urine Leukocytes (NEGATIVE) Urine WBC (Auto) (0-5) /HPF Urine RBC (Auto) (0-2) /HPF U Epithel Cells (Auto) (FEW) /HPF Urine Bacteria (Auto) (NEGATIVE) /HPF Urine RBC (0-5) Pedro/ul Unidentified Crystals (NEGATIVE) /HPF Ur Culture Indicated? Urine Glucose (NEGATIVE) mg/dL - Progress Progress: improved Progress Note: 02/05/22 13:46 1L NS bolus 100umg IV Fentanyl/4mg IV Zofran w mild improvement in pain 1mg IV dilaudid before discharge Counseled pt/family regarding: lab results, diagnosis, need for follow-up, rad results - Departure Departure Disposition: Home Clinical Impression: Abdominal pain Condition: Stable Critical Care Time: No Referrals: EVA GUZMAN [employer] ADMINISTRATOR [Primary Care Provider] - Follow up/PCP as directed Instructions: Severe Abdominal Pain Additional Instructions: Follow up with your family MD or pain physician Return to ER for increasing pain or temperature greater than 100.5
[2022-02-05] MEDS ORDERED: Sodium Chloride 0.9% 1000 ML 1,000 ML IV STA (11:26)
[2022-02-05] MEDS ORDERED: Sodium Chloride 0.9% 1000 ML 1,000 ML ONE (11:27)
--- NOTE | 2022-02-05 12:27 | XRAY ---
Indication: Left lower quadrant pain 2 weeks. Multiple contiguous axial images obtained through the abdomen and pelvis without contrast. Comparison: January 26, 2022. Lung bases remain clear. Heart not enlarged. Noncontrasted stomach and bowel loops remain nonobstructed again with normal appendix. Stable nonobstructing left renal punctate calculus and cholecystotomy clips. No free fluid/air. Remaining liver, pancreas, spleen, adrenal glands, kidneys, ureters, and bladder are unremarkable for noncontrast exam. Stable minimal aortic calcifications without AAA. Impression: No change compared to ER CT abdomen/pelvis 10 days ago again demonstrating nonobstructing left renal micro-calculus. No new/acute abnormalities on this noncontrast exam.
[2022-02-05 12:58] LABS: Appearance CLEAR (CLEAR); Bilirubin NEGATIVE (NEGATIVE); Dipstick done @ ? MAIN LAB; Glucose NEGATIVE (NEGATIVE); Ketones NEGATIVE (NEGATIVE); Nitrite NEGATIVE (NEGATIVE); Ph 8.5 (5-6); Protein,Urine Dip NEGATIVE (Negative); RBC SMALL Ery/ul (0-5); Urobilinogen 0.2 mg/dL (0-1)
[2022-02-05 13:28] LABS: Urine Cultured Indicated? NO
[2022-02-05] MEDS ORDERED: Hydromorphone 1 mg/ml Injection IV ONE (13:44)
[2022-02-05] MEDS ORDERED: Hydromorphone 1 mg/ml Injection ONE (14:05)
[2022-02-05 14:08] VITALS: BP 141/111
[2022-02-05 14:39] VITALS: PULSE 94
[2022-02-05 21:46] VITALS: O2SAT 98
== END 2022-02-05 14:55 | disposition home or self-care (01) ==
LOC: ED 09:59
DX: R10.32 Left lower quadrant pain (principal); R11.0 Nausea; I10 Essential (primary) hypertension; Z79.891 Long term (current) use of opiate analgesic; Z79.899 Other long term (current) drug therapy
CPT/HCPCS: 36000; 36415; 74176; 80053; 81015; 82150; 83605; 83690; 84484; 85025; 96360; 96374; 96375; 99284; J1170; J2405; J3010

== ENCOUNTER 2022-05-06 07:22 | Emergency (ER) | payer OTHER ==
[2022-05-06] MEDS ORDERED: Sodium Chloride 0.9% 1000 ML 1,000 ML IV STA (07:33)
[2022-05-06] MEDS ORDERED: Sodium Chloride 0.9% 1000 ML 1,000 ML ONE (07:40)
[2022-05-06 07:48] LABS: Absolute Neutrophil Ct (ANC) 9.01 x10^3/uL (1.4-6.9); Basophil (Absolute #) 0.06 x10^3/uL (0-0.4); Eosinophil (Absolute #) 0.14 x10^3/uL (0-0.5); Hematocrit 46.8 % (42-50); Hemoglobin 15.4 g/dL (12.5-18.0); Lymphocyte (Absolute #) 3.12 x10^3/uL (1.0-4.6); Lymphocytes % 23.3 % (24.0-44.0); Mean Cell Volume 85.2 fL (78-100); Mean Corpuscular Hemoglobin 28.1 pg (26-32); Mean Corpuscular Hgb Concent. 32.9 g/dL (32-36); Mean Platelet Volume 8.8 fL (7.5-11.0); Monocyte (Absolute #) 0.92 x10^3/uL (0.0-1.3); Monocytes % 6.9 % (0.0-12.0); Neutrophil % 67.5 % (36.0-66.0); Platelet Count 367 x10^3/uL (150-450); Red Blood Count 5.49 x10^6/uL (4.1-5.6); White Blood Count 13.4 x10^3/uL (4.0-10.5)
[2022-05-06] MEDS ORDERED: Zofran 4 MG/2 ML VIAL ONE (08:02)
[2022-05-06] MEDS ORDERED: Zofran 4 MG/2 ML VIAL IV ONE (08:02)
[2022-05-06] MEDS ORDERED: SUBLIMAZE 100 MCG/2 ML IV ONE (08:02)
[2022-05-06] MEDS ORDERED: SUBLIMAZE 100 MCG/2 ML ONE (08:03)
[2022-05-06 08:04] LABS: ALBUMIN 5.2 g/dL (3.5-5.0); ALKALINE PHOSPHATASE 101 U/L (38-126); AMYLASE 101 U/L (30-110); ANION GAP 16.4 MEQ/L (5-15); BLOOD UREA NITROGEN 9 mg/dL (9-20); CHLORIDE 105 mmol/L (98-107); Calcium 9.7 mg/dL (8.4-10.2); Carbon Dioxide 26 mmol/L (22-30); Creatinine 1 0.85 mg/dL (0.66-1.25); EST GLOMERULAR FILTRATION RATE > 60.0 ML/MIN; Glucose 110 mg/dL (74-106); LIPASE 80 U/L (23-300); Potassium 3.6 mmol/L (3.5-5.1); SGOT/AST 24 U/L (17-59); SGPT/ALT 25 U/L (0-50); SODIUM 143 mmol/L (137-145); Total Protein 8.3 g/dL (6.3-8.2)
--- NOTE | 2022-05-06 08:11 | ERPHSYRPT ---
- History of Present Illness Historian: patient Patient Subjective Stated Complaint: Left sided flank/abdominal pain Triage Nursing Assessment: Patient brought into ED per w/c and transferred to bed per self. Patient A+O X3. Patient's skin pink and diaphoretic. Patient complains of left sided flank/ abdominal pain 06/01. Patient states pain started 4 days ago and is worse after eating. Physician History: 41 yo wm w L CVA pain w radiation to LLQ x 4 days. Pain is 10 on scale, burning, and worse w food/drink. He has had nausea/vomiting wo hematemesis. Diarrhea/melena/hematochezia are denied. Pt self caths. Fever/cough/coryza/chest pain are all denied. Pt takes oxycodone daily due to chronic pain. Timing/Duration: other (4 days) Activities at Onset: rest Quality: burning Abdominal Pain Onset Location: LLQ Pain Radiation: flank Severity of Pain-Max: severe Severity of Pain-Current: severe Modifying Factors: Improves With: other (Worse w food) Associated Symptoms: back, loss of appetite, nausea, vomiting, No chest pain, No diaphoresis, No diarrhea, No fever/chills, No fatigue, No headache, No heartburn, No neck pain, No rash, No shortness of breath, No syncope, No testicular pain, No weakness Previous symptoms: same symptoms as today Allergies/Adverse Reactions: bupropion Allergy (Verified 05/06/22 07:37) propranolol Allergy (Verified 05/06/22 07:37) lisinopril Adverse Reaction (Severe, Verified 05/06/22 07:37) THROAT SWELLING Home Medications: Clonidine HCl 0.1 mg [Clonidine 0.1 mg Tablet] 0.2 mg PO BID 11/06/21 [History] Cyclobenzaprine HCl 10 mg [Cyclobenzaprine 10 MG] 10 mg PO TID 11/06/21 [History] Famotidine 20 mg [Pepcid 20 MG] 20 mg PO Q12H 11/06/21 [History] Gabapentin [Neurontin ] 600 mg PO TID 11/06/21 [History] Oxycodone HCl 5 mg Ir [Oxy-IR 5 MG] 15 mg PO UD 11/06/21 [History] HydrALAzine HCL 25 MG TAB [Apresoline 25 MG TABLET] 25 mg PO Q8H 02/05/22 [History] dilTIAZem HCL [Diltiazem 24Hr ER (Xr)] 180 mg PO DAILY 02/05/22 [History] Hx Tetanus, Diphtheria Vaccination/Date Given: Yes Hx Influenza Vaccination/Date Given: Yes Hx Pneumococcal Vaccination/Date Given: No Immunizations Up to Date: Yes Travel Risk - International Travel Have you traveled outside of the country in past 3 weeks: No - Coronavirus Screening Are you exhibiting any of the following symptoms?: No Close contact with a COVID-19 positive Pt in past 14-21 Days: No - Vaccine Status Have you recieved a Covid-19 vaccination: Yes 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: [employer] - Vaccination Dates Date of 2cond Vaccination (if applicable): UNKNOWN - Review of Systems Constitutional: No Symptoms Eyes: No Symptoms Ears, Nose, & Throat: No Symptoms Respiratory: No Symptoms Cardiac: No Symptoms Abdominal/Gastrointestinal: No Symptoms, Abdominal Pain, Nausea, Vomiting, No Diarrhea Genitourinary Symptoms: No Symptoms Musculoskeletal: No Symptoms Skin: No Symptoms Neurological: No Symptoms Psychological: No Symptoms Endocrine: No Symptoms Hematologic/Lymphatic: No Symptoms Immunological/Allergic: No Symptoms - Past Medical History Pertinent Past Medical History: Yes Neurological History: Migraines ENT History: No Pertinent History Cardiac History: Hypertension Respiratory History: No Pertinent History Endocrine Medical History: No Pertinent History Musculoskeletal History: Other GI Medical History: No Pertinent History History: No Pertinent History Psycho-Social History: No Pertinent History Other Medical History: SPINAL INJURY. angioedema r/t lisinopril, intubated and tx to [place] - Past Surgical History Past Surgical History: Yes Neuro Surgical History: Other Cardiac: No Pertinent History Respiratory: No Pertinent History Gastrointestinal: Other Genitourinary: No Pertinent History Male Surgical History: No Pertinent History Other Surgical History: COLOSECTOMY - Social History Smoking Status: Never smoker How long have you smoked: 2019 Exposure to second hand smoke: No Drug Use: none Patient Lives Alone: No Significant Family History: no pertinent family hx - Nursing Vital Signs Nursing Vital Signs: Initial Vital Signs Temperature 97.1 F 05/06/22 07:54 Pulse Rate 115 H 05/06/22 07:54 Respiratory Rate 18 05/06/22 07:54 Blood Pressure 157/101 05/06/22 07:54 O2 Sat by Pulse Oximetry 98 05/06/22 07:54 Pain Scale Pain Intensity 0 Hypertensive/Tachycardic - Physical Exam General Appearance: no apparent distress (In pain) Eye Exam: PERRL/EOMI, eyes nml inspection Ears, Nose, Throat Exam: normal ENT inspection, TMs normal, pharynx normal, moist mucous membranes Neck Exam: normal inspection, non-tender, supple, full range of motion, No meningismus, No mass, No Brudzinski, No Kernig's, No carotid bruit Respiratory Exam: normal breath sounds, lungs clear, airway intact Cardiovascular Exam: tachycardia, capillary refill <2 sec, No murmur Gastrointestinal/Abdomen Exam: soft, tenderness (LLQ moderate/No guarding or rebound) Back Exam: CVA tenderness (L CVA ttp moderately) Extremity Exam: normal inspection, normal range of motion, pelvis stable Neurologic Exam: alert, oriented x 3, cooperative, baggage agent II-XII nml as tested, normal mood/affect, nml cerebellar function, nml station & gait, sensation nml Skin Exam: normal color, warm, dry, No rash Lymphatic Exam: No adenopathy SpO2 Interpretation: normal SpO2: 98 O2 Delivery: Room Air - Course Nursing assessment & vital signs reviewed: Yes - CT Exams Abdomen/Pelvis CT Interpretation: Discussed w/radiologist (3mm distal L ureteral stone w mod hydronephrosis) Ordered Tests: Active Orders 24 hr Category Date Time Status ABDOMEN AND PELVIS W/0 CONTRAS [CT] Stat Exams 05/06/22 08:33 Completed AMYLASE Stat Lab 05/06/22 07:46 Completed CBC W DIFF Stat Lab 05/06/22 07:46 Completed CMP Stat Lab 05/06/22 07:46 Completed CULTURE,URINE Stat Lab 05/06/22 09:06 Received LIPASE Stat Lab 05/06/22 07:46 Completed Lactic Acid Stat Lab 05/06/22 07:46 Completed Lactic Acid Stat Lab 05/06/22 09:51 Completed TROPONIN Q4H Lab 05/06/22 07:46 Completed UA W/RFX CULTURE Stat Lab 05/06/22 09:06 Completed Urine Triage Profile Stat Lab 05/06/22 09:06 Completed Medication Summary Discontinued Medications Generic Name Dose Route Start Last Admin Trade Name Freq PRN Reason Stop Dose Admin Fentanyl Citrate 100 mcg 05/06/22 08:02 05/06/22 08:05 Fentanyl Citrate 100 Mcg/2 Ml* Vial IV 05/06/22 08:03 100 mcg STAT ONE Administration Fentanyl Citrate Confirm 05/06/22 08:03 Fentanyl Citrate 100 Mcg/2 Ml* Vial Administered 05/06/22 08:04 Dose 100 mcg .ROUTE .STK-MED ONE Sodium Chloride 1,000 mls @ 999 mls/hr 05/06/22 07:33 05/06/22 09:09 Sodium Chloride 0.9% 1000 Ml IV 05/06/22 08:33 Infused .Q1H1M STA Infusion Sodium Chloride Confirm 05/06/22 07:40 Sodium Chloride 0.9% 1000 Ml Administered 05/06/22 07:41 Dose 1,000 mls @ ud .ROUTE .STK-MED ONE Ceftriaxone Sodium/Dextrose 1 g in 50 mls @ 100 mls/hr 05/06/22 10:30 05/06/22 11:09 Rocephin 1 Gm-D5w 50 Ml Bag IV 05/06/22 10:59 Infused STAT STA Infusion Ceftriaxone Sodium/Dextrose Confirm 05/06/22 10:36 Rocephin 1 Gm-D5w 50 Ml Bag Administered 05/06/22 10:37 Dose 1 g in 50 mls @ ud IV .STK-MED ONE Ketorolac Tromethamine 30 mg 05/06/22 09:32 05/06/22 09:41 Ketorolac Tromethamine 30 Mg/Ml Inj IV 05/06/22 09:33 30 mg STAT ONE Administration Ketorolac Tromethamine Confirm 05/06/22 09:38 Ketorolac Tromethamine 30 Mg/Ml Inj Administered 05/06/22 09:39 Dose 30 mg .ROUTE .STK-MED ONE Ondansetron HCl 4 mg 05/06/22 08:02 05/06/22 08:04 Ondansetron Hcl 4 Mg/2 Ml Vial IV 05/06/22 08:03 4 mg STAT ONE Administration Ondansetron HCl Confirm 05/06/22 08:02 Ondansetron Hcl 4 Mg/2 Ml Vial Administered 05/06/22 08:03 Dose 4 mg .ROUTE .STK-MED ONE Lab/Rad Data: Laboratory Result Diagrams 05/06/22 07:46 05/06/22 07:46 Laboratory Results 05/06/22 05/06/22 05/06/22 Range/Units 09:51 09:06 09:06 WBC (4.0-10.5) x10^3/uL RBC (4.1-5.6) x10^6/uL Hgb (12.5-18.0) g/dL Hct (42-50) % MCV (78-100) fL MCH (26-32) pg MCHC (32-36) g/dL RDW (11.5-14.0) % Plt Count (150-450) x10^3/uL MPV (7.5-11.0) fL Gran % (36.0-66.0) % Immature Gran % (Auto) (0.00-0.4) % Nucleat RBC Rel Count (0.00-0.1) % Eos # (Auto) (0-0.5) x10^3/uL Immature Gran # (Auto) (0.00-0.03) x10^3u/L Absolute Lymphs (auto) (1.0-4.6) x10^3/uL Absolute Monos (auto) (0.0-1.3) x10^3/uL Absolute Nucleated RBC (0.00-0.01) x10^3u/L Lymphocytes % (24.0-44.0) % Monocytes % (0.0-12.0) % Eosinophils % (0.00-5.0) % Basophils % (0.0-0.4) % Absolute Granulocytes (1.4-6.9) x10^3/uL Basophils # (0-0.4) x10^3/uL Sodium (137-145) mmol/L Potassium (3.5-5.1) mmol/L Chloride (98-107) mmol/L Carbon Dioxide (22-30) mmol/L Anion Gap (5-15) MEQ/L BUN (9-20) mg/dL Creatinine (0.66-1.25) mg/dL Estimated GFR ML/MIN Glucose (74-106) mg/dL Lactic Acid 0.8 (0.4-2.0) Calcium (8.4-10.2) mg/dL Total Bilirubin (0.2-1.3) mg/dL AST (17-59) U/L ALT (0-50) U/L Alkaline Phosphatase (38-126) U/L Troponin I (0.000-0.034) ng/mL Serum Total Protein (6.3-8.2) g/dL Albumin (3.5-5.0) g/dL Amylase (30-110) U/L Lipase (23-300) U/L Urinalys Dipstick Clnc MAIN LAB Urine Color YELLOW (YELLOW) Urine Appearance SLIGHTLY CLOUDY (CLEAR) Urine pH 6.0 (5-6) Ur Specific [place] >=1.030 (1.005-1.025) POC Urine Protein Conf 100 (Negative) Urine Ketones NEGATIVE (NEGATIVE) Urine Nitrite NEGATIVE (NEGATIVE) Urine Bilirubin SMALL (NEGATIVE) Urine Urobilinogen 0.2 (0-1) mg/dL Urine Leukocytes NEGATIVE (NEGATIVE) Urine WBC (Auto) 3-5 (0-5) /HPF Urine RBC (Auto) >101 (0-2) /HPF U Hyaline Cast (Auto) 3-5 (0-2) /LPF U Epithel Cells (Auto) FEW (FEW) /HPF Urine Bacteria (Auto) FEW (NEGATIVE) /HPF Urine RBC LARGE (0-5) Pedro/ul Unidentified Crystals 5-10 (NEGATIVE) /HPF Urine Mucus (Auto) MANY (NEGATIVE) /HPF Ur Culture Indicated? YES Urine Glucose NEGATIVE (NEGATIVE) mg/dL Urine Opiates Level POSITIVE (NEGATIVE) Ur Methadone NEGATIVE (NEGATIVE) Urine Barbiturates NEGATIVE (NEGATIVE) Ur Phencyclidine (PCP) NEGATIVE (NEGATIVE) Urine Amphetamine NEGATIVE (NEGATIVE) U Benzodiazepine Level NEGATIVE (NEGATIVE) Urine Cocaine NEGATIVE (NEGATIVE) Urine Marijuana (THC) POSITIVE (NEGATIVE) 05/06/22 05/06/22 05/06/22 Range/Units 07:46 07:46 07:46 WBC (4.0-10.5) x10^3/uL RBC (4.1-5.6) x10^6/uL Hgb (12.5-18.0) g/dL Hct (42-50) % MCV (78-100) fL MCH (26-32) pg MCHC (32-36) g/dL RDW (11.5-14.0) % Plt Count (150-450) x10^3/uL MPV (7.5-11.0) fL Gran % (36.0-66.0) % Immature Gran % (Auto) (0.00-0.4) % Nucleat RBC Rel Count (0.00-0.1) % Eos # (Auto) (0-0.5) x10^3/uL Immature Gran # (Auto) (0.00-0.03) x10^3u/L Absolute Lymphs (auto) (1.0-4.6) x10^3/uL Absolute Monos (auto) (0.0-1.3) x10^3/uL Absolute Nucleated RBC (0.00-0.01) x10^3u/L Lymphocytes % (24.0-44.0) % Monocytes % (0.0-12.0) % Eosinophils % (0.00-5.0) % Basophils % (0.0-0.4) % Absolute Granulocytes (1.4-6.9) x10^3/uL Basophils # (0-0.4) x10^3/uL Sodium 143 (137-145) mmol/L Potassium 3.6 (3.5-5.1) mmol/L Chloride 105 (98-107) mmol/L Carbon Dioxide 26 (22-30) mmol/L Anion Gap 16.4 H (5-15) MEQ/L BUN 9 (9-20) mg/dL Creatinine 0.85 (0.66-1.25) mg/dL Estimated GFR > 60.0 ML/MIN Glucose 110 H (74-106) mg/dL Lactic Acid 2.2 H (0.4-2.0) Calcium 9.7 (8.4-10.2) mg/dL Total Bilirubin 0.50 (0.2-1.3) mg/dL AST 24 (17-59) U/L ALT 25 (0-50) U/L Alkaline Phosphatase 101 (38-126) U/L Troponin I < 0.012 (0.000-0.034) ng/mL Serum Total Protein 8.3 H (6.3-8.2) g/dL Albumin 5.2 H (3.5-5.0) g/dL Amylase 101 (30-110) U/L Lipase 80 (23-300) U/L Urinalys Dipstick Clnc Urine Color (YELLOW) Urine Appearance (CLEAR) Urine pH (5-6) Ur Specific [place] (1.005-1.025) POC Urine Protein Conf (Negative) Urine Ketones (NEGATIVE) Urine Nitrite (NEGATIVE) Urine Bilirubin (NEGATIVE) Urine Urobilinogen (0-1) mg/dL Urine Leukocytes (NEGATIVE) Urine WBC (Auto) (0-5) /HPF Urine RBC (Auto) (0-2) /HPF U Hyaline Cast (Auto) (0-2) /LPF U Epithel Cells (Auto) (FEW) /HPF Urine Bacteria (Auto) (NEGATIVE) /HPF Urine RBC (0-5) Pedro/ul Unidentified Crystals (NEGATIVE) /HPF Urine Mucus (Auto) (NEGATIVE) /HPF Ur Culture Indicated? Urine Glucose (NEGATIVE) mg/dL Urine Opiates Level (NEGATIVE) Ur Methadone (NEGATIVE) Urine Barbiturates (NEGATIVE) Ur Phencyclidine (PCP) (NEGATIVE) Urine Amphetamine (NEGATIVE) U Benzodiazepine Level (NEGATIVE) Urine Cocaine (NEGATIVE) Urine Marijuana (THC) (NEGATIVE) 05/06/22 Range/Units 07:46 WBC 13.4 H (4.0-10.5) x10^3/uL RBC 5.49 (4.1-5.6) x10^6/uL Hgb 15.4 (12.5-18.0) g/dL Hct 46.8 (42-50) % MCV 85.2 (78-100) fL MCH 28.1 (26-32) pg MCHC 32.9 (32-36) g/dL RDW 14.0 (11.5-14.0) % Plt Count 367 (150-450) x10^3/uL MPV 8.8 (7.5-11.0) fL Gran % 67.5 H (36.0-66.0) % Immature Gran % (Auto) 0.9 H (0.00-0.4) % Nucleat RBC Rel Count 0.0 (0.00-0.1) % Eos # (Auto) 0.14 (0-0.5) x10^3/uL Immature Gran # (Auto) 0.12 H (0.00-0.03) x10^3u/L Absolute Lymphs (auto) 3.12 (1.0-4.6) x10^3/uL Absolute Monos (auto) 0.92 (0.0-1.3) x10^3/uL Absolute Nucleated RBC 0.00 (0.00-0.01) x10^3u/L Lymphocytes % 23.3 L (24.0-44.0) % Monocytes % 6.9 (0.0-12.0) % Eosinophils % 1.0 (0.00-5.0) % Basophils % 0.4 (0.0-0.4) % Absolute Granulocytes 9.01 H (1.4-6.9) x10^3/uL Basophils # 0.06 (0-0.4) x10^3/uL Sodium (137-145) mmol/L Potassium (3.5-5.1) mmol/L Chloride (98-107) mmol/L Carbon Dioxide (22-30) mmol/L Anion Gap (5-15) MEQ/L BUN (9-20) mg/dL Creatinine (0.66-1.25) mg/dL Estimated GFR ML/MIN Glucose (74-106) mg/dL Lactic Acid (0.4-2.0) Calcium (8.4-10.2) mg/dL Total Bilirubin (0.2-1.3) mg/dL AST (17-59) U/L ALT (0-50) U/L Alkaline Phosphatase (38-126) U/L Troponin I (0.000-0.034) ng/mL Serum Total Protein (6.3-8.2) g/dL Albumin (3.5-5.0) g/dL Amylase (30-110) U/L Lipase (23-300) U/L Urinalys Dipstick Clnc Urine Color (YELLOW) Urine Appearance (CLEAR) Urine pH (5-6) Ur Specific [place] (1.005-1.025) POC Urine Protein Conf (Negative) Urine Ketones (NEGATIVE) Urine Nitrite (NEGATIVE) Urine Bilirubin (NEGATIVE) Urine Urobilinogen (0-1) mg/dL Urine Leukocytes (NEGATIVE) Urine WBC (Auto) (0-5) /HPF Urine RBC (Auto) (0-2) /HPF U Hyaline Cast (Auto) (0-2) /LPF U Epithel Cells (Auto) (FEW) /HPF Urine Bacteria (Auto) (NEGATIVE) /HPF Urine RBC (0-5) Pedro/ul Unidentified Crystals (NEGATIVE) /HPF Urine Mucus (Auto) (NEGATIVE) /HPF Ur Culture Indicated? Urine Glucose (NEGATIVE) mg/dL Urine Opiates Level (NEGATIVE) Ur Methadone (NEGATIVE) Urine Barbiturates (NEGATIVE) Ur Phencyclidine (PCP) (NEGATIVE) Urine Amphetamine (NEGATIVE) U Benzodiazepine Level (NEGATIVE) Urine Cocaine (NEGATIVE) Urine Marijuana (THC) (NEGATIVE) - Progress Progress: improved Progress Note: 05/06/22 11:28 1L NS bolus 100mcg IV Fentanyl/4mg IV Zofran w mild improvement in pain 30mg IV toradol w marked improvement in pain 1gm IV Rocephin 05/06/22 14:56 Dr. Rodriguez does not take pt's insurance, so advised to f/u w his [facility] Counseled pt/family regarding: lab results, diagnosis, need for follow-up, rad results - Departure Departure Disposition: Home Clinical Impression: Ureterolithiasis Condition: Stable Critical Care Time: No Referrals: EVA GUZMAN, SANITARY AIDE [Primary Care Provider] - Follow up/PCP as directed Instructions: Kidney Stones (DC) Additional Instructions: Strain all urine Bactrim twice a day for 5 days Toradol as needed for pain Return to ER for increasing pain or Temperature greater than 100.5 Follow up with your urologist in 1-2 days Prescriptions: Sulfamethoxazole/Trimethoprim [Bactrim Ds Tablet] 1 each PO BID #10 tablet Ketorolac Trometh 10 mg Tab [TORAdol 10 MG TABLET] 10 mg PO TIDPRN PRN #10 tablet PRN Reason: Pain
[2022-05-06] MEDS ORDERED: TORAdol 30 mg Injection IV ONE (09:32)
[2022-05-06] MEDS ORDERED: TORAdol 30 mg Injection ONE (09:38)
[2022-05-06 09:53] LABS: Appearance SLIGHTLY CLOUDY (CLEAR); Bilirubin SMALL (NEGATIVE); Dipstick done @ ? MAIN LAB; Glucose NEGATIVE (NEGATIVE); Ketones NEGATIVE (NEGATIVE); Nitrite NEGATIVE (NEGATIVE); Protein,Urine Dip 100 (Negative); RBC LARGE Ery/ul (0-5); Specific Gravity >=1.030 (1.005-1.025); Urobilinogen 0.2 mg/dL (0-1)
[2022-05-06 10:05] LABS: Mucus MANY /HPF (NEGATIVE)
[2022-05-06 10:06] LABS: Bacteria FEW /HPF (NEGATIVE); Epithelial Cells FEW /HPF (FEW); RBC >101 /HPF (0-2); Urine Cultured Indicated? YES
--- NOTE | 2022-05-06 10:08 | XRAY ---
Exam: CT of the abdomen and pelvis without IV contrast from 05/06/2022. CTDI: 5.92 mGy Comparison: CT of the abdomen and pelvis without IV contrast from 02/05/2022. Indication: 41-year-old male with abdominal pain; left flank pain and left lower quadrant pain for 4 days; history of renal stones and prior cholecystectomy; history of prior spinal injury. Technique: Non-IV contrast axial images were obtained through the abdomen and pelvis. Reconstructed coronal and sagittal images were created and reviewed. Findings: There appears to be a 3 mm in diameter obstructing stone within the distal left ureter just above the left ureterovesical junction in the lower left pelvis. Proximal to this, there is left-sided hydroureter and hydronephrosis with asymmetric left renal swelling and perirenal stranding suggesting significant obstructive uropathy. Prior small nonobstructing stone within the upper pole of the left kidney on the prior study from 02/05/2022 is not seen within the left kidney currently. No right renal calculi are seen. There is no right-sided hydronephrosis. The right ureter appears unremarkable. The urinary bladder appears grossly unremarkable without evidence of bladder stone. The visualized lung bases are clear. The heart size is normal. Assessment of the solid organs is limited without the use of IV contrast. Surgical clips consistent with prior cholecystectomy are seen within the right upper quadrant. The liver appears unremarkable without evidence of gross mass or intrahepatic biliary duct distention. The spleen is of normal size and is remarkable for a few scattered calcified granulomas. No splenic mass is seen. The pancreas and adrenal glands appear unremarkable. The abdominal aorta reveals minimal vascular calcification within its distal aspect. No abdominal aortic aneurysm or abnormal retroperitoneal lymphadenopathy is seen. There is no free intraperitoneal air. No ventral bowel containing hernia is seen. The bowel is not distended. Scattered stool is seen throughout the colon. A normal diameter retrocecal appendix is seen without evidence of inflammatory changes. Within the pelvis, the urinary bladder is partially empty. No urinary bladder stone is seen. A calcified phlebolith is seen within the inferior right hemipelvis. No abnormal pelvic mass, pelvic lymphadenopathy, or free intraperitoneal fluid is seen. The seminal vesicles and prostate gland appear unremarkable, the prostate gland measuring about 4.3 cm in width. There appears to be a minimal fat-containing left inguinal hernia which is unchanged in retrospect.. Some postinflammatory small lymph nodes are seen within each groin. The skeleton reveals no acute fracture or aggressive bone lesion. I note mild degenerative disc disease at L5-S1 manifested by mild discogenic sclerosis of the opposing endplates, minimal vacuum disc phenomena, mild loss of the disc height, and small anterior lateral vertebral endplate spurs. Impression: 1. There is a 3 mm distal left ureteral stone causing at least moderate obstructive uropathy with dilation of the left ureter, hydronephrosis, mild left renal swelling, and some left perirenal stranding. This is new from 02/05/2022. Prior nonobstructing stone within the upper pole of the left kidney is not seen and has presumably moved down into the distal left ureter. 2. Status post cholecystectomy. 3. The appendix is normal. I see no findings of significant diverticulosis or diverticulitis. No other acute process is seen within the abdomen or pelvis. 4. Small fat-containing left inguinal hernia, no change in retrospect. 5. Early/mild degenerative disc disease at L5-S1.
[2022-05-06 10:13] LABS: Amphetamine,Urine NEGATIVE (NEGATIVE); Barbiturate,Urine NEGATIVE (NEGATIVE); Benzodiazepine,Urine NEGATIVE (NEGATIVE); Cocaine,Urine NEGATIVE (NEGATIVE); Methadone,Urine NEGATIVE (NEGATIVE); Opiate,Urine POSITIVE (NEGATIVE); PCP,Urine NEGATIVE (NEGATIVE); THC,Urine POSITIVE (NEGATIVE)
[2022-05-06] MEDS ORDERED: ROCEPHIN 1 Gm-D5w 50 ml Bag** 1 G/50 ML IVPB IV STA (10:30)
[2022-05-06] MEDS ORDERED: ROCEPHIN 1 Gm-D5w 50 ml Bag** 1 G/50 ML IVPB IV ONE (10:36)
[2022-05-06 11:57] VITALS: BP 143/81; PULSE 102
[2022-05-06 14:58] VITALS: O2SAT 98
== END 2022-05-06 11:57 | disposition home or self-care (01) ==
LOC: ED 07:22
DX: N13.2 Hydronephrosis with renal and ureteral calculous obstruction (principal); R10.32 Left lower quadrant pain; R11.2 Nausea with vomiting, unspecified; I10 Essential (primary) hypertension; Z79.891 Long term (current) use of opiate analgesic; Z79.899 Other long term (current) drug therapy
CPT/HCPCS: 36000; 36415; 74176; 80053; 80307; 81015; 82150; 83605; 83690; 84484; 85025; 87086; 96360; 96365; 96374; 96375; 99284; J0696; J1885; J2405; J3010

== ENCOUNTER 2022-06-15 08:58 | Emergency (ER) | payer OTHER ==
[2022-06-15] MEDS ORDERED: Zofran 4 MG/2 ML VIAL IV ONE (09:29)
[2022-06-15] MEDS ORDERED: Sodium Chloride 0.9% 1000 ML 1,000 ML IV STA (09:29)
--- NOTE | 2022-06-15 09:30 | ERPHSYRPT ---
- History of Present Illness Time Seen by Provider: 06/15/22 09:25 Historian: patient Exam Limitations: no limitations Patient Subjective Stated Complaint: C/O N/V since Wednesday. Doesn't know if he has had a fever or not. Triage Nursing Assessment: Patient came back to ED in a motorized W/C. He is alert and oriented. No SOB. Occ, dry, non-productive cough noted during assessment. No vomiting during assessment. Physician History: This is a thin 41-year-old white male patient who has had a spinal injury in the past and now paraplegic and presents with 3-day history of vomiting and back pain. Patient has chronic back pain issues and sees a pain specialist for this and is on daily oxycodone. He also has a history of hypertension and migraine headaches. He has children at home that is had various flulike symptoms. COVID test as recently as 24 hours ago onto the kids were negative. Patient has a history of chronic intermittent pancreatitis and was diagnosed with ureterolithiasis mid April 2022. Timing/Duration: day(s) (3) Activities at Onset: none Quality: other (No significant abdominal pain) Abdominal Pain Onset Location: other (No significant abdominal pain) Severity of Pain-Max: moderate (Back pain) Severity of Pain-Current: moderate (Back pain) Associated Symptoms: back, loss of appetite, nausea, vomiting, No diarrhea Previous symptoms: same symptoms as today Allergies/Adverse Reactions: bupropion Allergy (Verified 06/15/22 09:15) fentanyl Allergy (Verified 06/15/22 09:15) propranolol Allergy (Verified 06/15/22 09:15) lisinopril Adverse Reaction (Severe, Verified 06/15/22 09:15) THROAT SWELLING Home Medications: Clonidine HCl 0.1 mg [Clonidine 0.1 mg Tablet] 0.2 mg PO BID 11/06/21 [History] Cyclobenzaprine HCl 10 mg [Cyclobenzaprine 10 MG] 10 mg PO TID 11/06/21 [History] Famotidine 20 mg [Pepcid 20 MG] 20 mg PO Q12H 11/06/21 [History] Gabapentin [Neurontin ] 600 mg PO TID 11/06/21 [History] Oxycodone HCl 5 mg Ir [Oxy-IR 5 MG] 15 mg PO UD 11/06/21 [History] HydrALAzine HCL 25 MG TAB [Apresoline 25 MG TABLET] 25 mg PO Q8H 02/05/22 [History] dilTIAZem HCL [Diltiazem 24Hr ER (Xr)] 180 mg PO DAILY 02/05/22 [History] Hx Tetanus, Diphtheria Vaccination/Date Given: Yes Hx Influenza Vaccination/Date Given: No Hx Pneumococcal Vaccination/Date Given: No Immunizations Up to Date: Yes Travel Risk - International Travel Have you traveled outside of the country in past 3 weeks: No - Coronavirus Screening Are you exhibiting any of the following symptoms?: Yes Symptoms: Cough: New Onset, Vomiting/Diarrhea - Vaccine Status Have you recieved a Covid-19 vaccination: Yes News Director: Diafer[employer] - Vaccination Dates Date of 2cond Vaccination (if applicable): UNKNOWN - Review of Systems Constitutional: No Symptoms Eyes: No Symptoms Ears, Nose, & Throat: No Symptoms Respiratory: No Symptoms Abdominal/Gastrointestinal: Nausea, Vomiting, No Abdominal Pain Genitourinary Symptoms: No Symptoms Musculoskeletal: Back Pain Skin: No Symptoms Neurological: No Symptoms Psychological: No Symptoms Endocrine: No Symptoms Hematologic/Lymphatic: No Symptoms Immunological/Allergic: No Symptoms All Other Systems: Reviewed and Negative - Past Medical History Pertinent Past Medical History: Yes Neurological History: Migraines ENT History: No Pertinent History Cardiac History: Hypertension Respiratory History: No Pertinent History Endocrine Medical History: No Pertinent History Musculoskeletal History: Other GI Medical History: No Pertinent History History: No Pertinent History Psycho-Social History: No Pertinent History Other Medical History: SPINAL INJURY. angioedema r/t lisinopril, intubated and tx to [place] - Past Surgical History Past Surgical History: Yes Neuro Surgical History: Other Cardiac: No Pertinent History Respiratory: No Pertinent History Gastrointestinal: Other Genitourinary: No Pertinent History Male Surgical History: No Pertinent History Other Surgical History: COLOSECTOMY - Social History Smoking Status: Former smoker How long have you smoked: 2019 Exposure to second hand smoke: Yes Drug Use: none Patient Lives Alone: No Significant Family History: no pertinent family hx - Nursing Vital Signs Nursing Vital Signs: Initial Vital Signs Temperature 98.5 F 06/15/22 09:17 Pulse Rate 93 H 06/15/22 09:17 Respiratory Rate 20 06/15/22 09:17 Blood Pressure 157/99 06/15/22 09:17 O2 Sat by Pulse Oximetry 99 06/15/22 09:17 Pain Scale Pain Intensity 6 - Physical Exam General Appearance: mild distress, alert, anxiety, thin Eye Exam: PERRL/EOMI, eyes nml inspection Ears, Nose, Throat Exam: normal ENT inspection, moist mucous membranes Neck Exam: normal inspection, non-tender, supple, full range of motion Respiratory Exam: normal breath sounds, lungs clear, airway intact, No chest tenderness, No respiratory distress Cardiovascular Exam: regular rate/rhythm, normal heart sounds, normal peripheral pulses Gastrointestinal/Abdomen Exam: soft, normal bowel sounds, No tenderness Rectal Exam: not done Back Exam: normal range of motion, No CVA tenderness, No vertebral tenderness Extremity Exam: normal inspection, normal range of motion, pelvis stable Neurologic Exam: alert, oriented x 3, cooperative Skin Exam: normal color, warm, dry Lymphatic Exam: No adenopathy SpO2 Interpretation: normal SpO2: 99 O2 Delivery: Room Air - Course Nursing assessment & vital signs reviewed: Yes Ordered Tests: Active Orders 24 hr Category Date Time Status IV Insertion STAT Care 06/15/22 09:29 Active AMYLASE Stat Lab 06/15/22 09:45 Completed BLOOD CULTURE Stat Lab 06/15/22 09:55 Received CBC W DIFF Stat Lab 06/15/22 09:45 Completed CMP Stat Lab 06/15/22 09:45 Completed LIPASE Stat Lab 06/15/22 09:45 Completed Lactic Acid Stat Lab 06/15/22 09:45 Completed Addison Screen Stat Lab 06/15/22 09:45 Completed Medication Summary Generic Name Dose Route Start Last Admin Trade Name Freq PRN Reason Stop Dose Admin Sodium Chloride 500 mls @ 500 mls/hr 06/15/22 12:41 Sodium Chloride 0.9% 500 Ml IV 06/15/22 13:40 .Q1H ONE Discontinued Medications Generic Name Dose Route Start Last Admin Trade Name Freq PRN Reason Stop Dose Admin Sodium Chloride 1,000 mls @ 999 mls/hr 06/15/22 09:29 06/15/22 10:47 Sodium Chloride 0.9% 1000 Ml IV 06/15/22 10:29 Infused .Q1H1M STA Infusion Sodium Chloride Confirm 06/15/22 09:42 Sodium Chloride 0.9% 1000 Ml Administered 06/15/22 09:43 Dose 1,000 mls @ ud .ROUTE .STK-MED ONE Ketorolac Tromethamine 30 mg 06/15/22 09:49 06/15/22 09:53 Ketorolac Tromethamine 30 Mg/Ml Inj IV 06/15/22 09:50 30 mg STAT ONE Administration Ketorolac Tromethamine Confirm 06/15/22 09:51 Ketorolac Tromethamine 30 Mg/Ml Inj Administered 06/15/22 09:52 Dose 30 mg .ROUTE .STK-MED ONE Ondansetron HCl 4 mg 06/15/22 09:29 06/15/22 09:42 Ondansetron Hcl 4 Mg/2 Ml Vial IV 06/15/22 09:30 4 mg STAT ONE Administration Ondansetron HCl Confirm 06/15/22 09:42 Ondansetron Hcl 4 Mg/2 Ml Vial Administered 06/15/22 09:43 Dose 4 mg .ROUTE .STK-MED ONE Lab/Rad Data: Laboratory Result Diagrams 06/15/22 09:45 06/15/22 09:45 Laboratory Results 06/15/22 06/15/22 06/15/22 Range/Units 10:00 09:45 09:45 WBC (4.0-10.5) x10^3/uL RBC (4.1-5.6) x10^6/uL Hgb (12.5-18.0) g/dL Hct (42-50) % MCV (78-100) fL MCH (26-32) pg MCHC (32-36) g/dL RDW (11.5-14.0) % Plt Count (150-450) x10^3/uL MPV (7.5-11.0) fL Gran % (36.0-66.0) % Immature Gran % (Auto) (0.00-0.4) % Nucleat RBC Rel Count (0.00-0.1) % Eos # (Auto) (0-0.5) x10^3/uL Immature Gran # (Auto) (0.00-0.03) x10^3u/L Absolute Lymphs (auto) (1.0-4.6) x10^3/uL Absolute Monos (auto) (0.0-1.3) x10^3/uL Absolute Nucleated RBC (0.00-0.01) x10^3u/L Lymphocytes % (24.0-44.0) % Monocytes % (0.0-12.0) % Eosinophils % (0.00-5.0) % Basophils % (0.0-0.4) % Absolute Granulocytes (1.4-6.9) x10^3/uL Basophils # (0-0.4) x10^3/uL Sodium 140 (137-145) mmol/L Potassium 5.1 (3.5-5.1) mmol/L Chloride 110 H (98-107) mmol/L Carbon Dioxide 19 L (22-30) mmol/L Anion Gap 15.9 H (5-15) MEQ/L BUN 9 (9-20) mg/dL Creatinine 0.69 (0.66-1.25) mg/dL Estimated GFR > 60.0 ML/MIN Glucose 107 H (74-106) mg/dL Lactic Acid (0.4-2.0) Calcium 9.6 (8.4-10.2) mg/dL Total Bilirubin 1.00 (0.2-1.3) mg/dL AST 46 (17-59) U/L ALT 28 (0-50) U/L Alkaline Phosphatase 99 (38-126) U/L Serum Total Protein 8.7 H (6.3-8.2) g/dL Albumin 5.1 H (3.5-5.0) g/dL Amylase 96 (30-110) U/L Lipase 88 (23-300) U/L Monoscreen NEGATIVE (Negative) Influenza Type A Ag NEGATIVE (NEGATIVE) Influenza Type B Ag NEGATIVE (NEGATIVE) RSV (PCR) NEGATIVE (Negative) SARS-CoV-2 (PCR) NEGATIVE (NEGATIVE) 06/15/22 06/15/22 Range/Units 09:45 09:45 WBC 11.1 H (4.0-10.5) x10^3/uL RBC 5.43 (4.1-5.6) x10^6/uL Hgb 15.3 (12.5-18.0) g/dL Hct 46.0 (42-50) % MCV 84.7 (78-100) fL MCH 28.2 (26-32) pg MCHC 33.3 (32-36) g/dL RDW 13.3 (11.5-14.0) % Plt Count 303 (150-450) x10^3/uL MPV 9.3 (7.5-11.0) fL Gran % 73.9 H (36.0-66.0) % Immature Gran % (Auto) 0.4 (0.00-0.4) % Nucleat RBC Rel Count 0.0 (0.00-0.1) % Eos # (Auto) 0.09 (0-0.5) x10^3/uL Immature Gran # (Auto) 0.05 H (0.00-0.03) x10^3u/L Absolute Lymphs (auto) 1.98 (1.0-4.6) x10^3/uL Absolute Monos (auto) 0.75 (0.0-1.3) x10^3/uL Absolute Nucleated RBC 0.00 (0.00-0.01) x10^3u/L Lymphocytes % 17.8 L (24.0-44.0) % Monocytes % 6.7 (0.0-12.0) % Eosinophils % 0.8 (0.00-5.0) % Basophils % 0.4 (0.0-0.4) % Absolute Granulocytes 8.22 H (1.4-6.9) x10^3/uL Basophils # 0.04 (0-0.4) x10^3/uL Sodium (137-145) mmol/L Potassium (3.5-5.1) mmol/L Chloride (98-107) mmol/L Carbon Dioxide (22-30) mmol/L Anion Gap (5-15) MEQ/L BUN (9-20) mg/dL Creatinine (0.66-1.25) mg/dL Estimated GFR ML/MIN Glucose (74-106) mg/dL Lactic Acid 1.5 (0.4-2.0) Calcium (8.4-10.2) mg/dL Total Bilirubin (0.2-1.3) mg/dL AST (17-59) U/L ALT (0-50) U/L Alkaline Phosphatase (38-126) U/L Serum Total Protein (6.3-8.2) g/dL Albumin (3.5-5.0) g/dL Amylase (30-110) U/L Lipase (23-300) U/L Monoscreen (Negative) Influenza Type A Ag (NEGATIVE) Influenza Type B Ag (NEGATIVE) RSV (PCR) (Negative) SARS-CoV-2 (PCR) (NEGATIVE) - Progress Progress: improved, pain not gone completely, re-examined Progress Note: 06/15/22 12:41 Patient refuses to provide us with a urine specimen. Patient perform self- catheterization and he did not want to have that performed at this time. Counseled pt/family regarding: lab results, diagnosis, need for follow-up - Departure Departure Disposition: Home Clinical Impression: Vomiting Condition: Stable Critical Care Time: No Referrals: EVA GUZMAN MOBILE SALES CONSULTANT [Primary Care Provider] - Follow up/PCP as directed Additional Instructions: Drink plenty of clear liquids before advancing diet. Avoid fatty greasy spicy foods. Follow-up with your primary care provider for further evaluation management. Prescriptions: Ondansetron ODT 4 MG [Zofran Odt 4 mg] 4 mg PO Q6H PRN PRN #10 tablet PRN Reason: Vomiting
[2022-06-15] MEDS ORDERED: Zofran 4 MG/2 ML VIAL ONE (09:42)
[2022-06-15] MEDS ORDERED: Sodium Chloride 0.9% 1000 ML 1,000 ML ONE (09:42)
[2022-06-15] MEDS ORDERED: TORAdol 30 mg Injection IV ONE (09:49)
[2022-06-15] MEDS ORDERED: TORAdol 30 mg Injection ONE (09:51)
[2022-06-15 09:59] LABS: Absolute Neutrophil Ct (ANC) 8.22 x10^3/uL (1.4-6.9); Basophil (Absolute #) 0.04 x10^3/uL (0-0.4); Eosinophil % 0.8 % (0.00-5.0); Eosinophil (Absolute #) 0.09 x10^3/uL (0-0.5); Hemoglobin 15.3 g/dL (12.5-18.0); Lymphocyte (Absolute #) 1.98 x10^3/uL (1.0-4.6); Lymphocytes % 17.8 % (24.0-44.0); Mean Cell Volume 84.7 fL (78-100); Mean Corpuscular Hemoglobin 28.2 pg (26-32); Mean Corpuscular Hgb Concent. 33.3 g/dL (32-36); Mean Platelet Volume 9.3 fL (7.5-11.0); Monocyte (Absolute #) 0.75 x10^3/uL (0.0-1.3); Monocytes % 6.7 % (0.0-12.0); Neutrophil % 73.9 % (36.0-66.0); Platelet Count 303 x10^3/uL (150-450); Red Blood Count 5.43 x10^6/uL (4.1-5.6); Red Cell Distribution Width 13.3 % (11.5-14.0); White Blood Count 11.1 x10^3/uL (4.0-10.5)
[2022-06-15 10:40] LABS: INFLUENZA A NEGATIVE (NEGATIVE); INFLUENZA B NEGATIVE (NEGATIVE); RESPIRATORY SYNCTIAL VIRUS NEGATIVE (Negative); SARS-CoV-2 Xpert Express NEGATIVE (NEGATIVE)
[2022-06-15] MEDS ORDERED: Sodium Chloride 0.9% 500 ML 500 ML IV ONE ×2 (12:41→13:19)
[2022-06-15 12:48] LABS: ALBUMIN 5.1 g/dL (3.5-5.0); ALKALINE PHOSPHATASE 99 U/L (38-126); AMYLASE 96 U/L (30-110); ANION GAP 15.9 MEQ/L (5-15); BLOOD UREA NITROGEN 9 mg/dL (9-20); CHLORIDE 110 mmol/L (98-107); Calcium 9.6 mg/dL (8.4-10.2); Carbon Dioxide 19 mmol/L (22-30); Creatinine 1 0.69 mg/dL (0.66-1.25); EST GLOMERULAR FILTRATION RATE > 60.0 ML/MIN; Glucose 107 mg/dL (74-106); LIPASE 88 U/L (23-300); Potassium 5.1 mmol/L (3.5-5.1); SGOT/AST 46 U/L (17-59); SGPT/ALT 28 U/L (0-50); SODIUM 140 mmol/L (137-145); Total Protein 8.7 g/dL (6.3-8.2)
[2022-06-15 13:29] VITALS: O2SAT 97
[2022-06-15 14:37] VITALS: BP 161/118; PULSE 72
== END 2022-06-15 14:38 | disposition home or self-care (01) ==
LOC: ED 08:58
DX: R11.10 Vomiting, unspecified (principal); G89.29 Other chronic pain; M54.9 Dorsalgia, unspecified; G82.20 Paraplegia, unspecified; T14.8XXS Other injury of unspecified body region, sequela; I10 Essential (primary) hypertension; Z79.891 Long term (current) use of opiate analgesic; Z79.899 Other long term (current) drug therapy
CPT/HCPCS: 0241U; 36000; 36415; 80053; 82150; 83605; 83690; 85025; 86308; 87040; 96374; 96375; 99284; J1885; J2405

== ENCOUNTER 2022-07-20 15:01 | Emergency (ER) | payer OTHER ==
[2022-07-20] MEDS ORDERED: Zofran 4 MG/2 ML VIAL IV ONE (18:32)
[2022-07-20] MEDS ORDERED: MORPHINE SULFATE 4 MG INJ IV ONE ×2 (18:32→23:27)
--- NOTE | 2022-07-20 18:41 | ERPHSYRPT ---
- History of Present Illness Time Seen by Provider: 07/20/22 18:41 Historian: patient Exam Limitations: no limitations Patient Subjective Stated Complaint: " I've started having groin pain around Wednesday morning and I feel like I have a lump down there on my left side, it really hurts bad". Triage Nursing Assessment: Pt presents to ER in wheelchair, pt complains of left lower groin pain since Wednesday and worsened today. Area was assessed and very tender upon exam, no gross swelling noted. Pt is alert and oriented x 3. Complains of pain 10/10 scale, also has chronic back issues that are flaring up. Pt is wheelchair bound due to previous L5/S1 injury. Pt skin is pink, warm, and dry. Appears in pain. Pt self caths but states urine appears normal. Physician History: Patient is a 41-year-old male history of paraplegia presents to our ED for evaluation of left groin pain. Patient described a palpable hernia that was first observed on Wednesday. Over the past 2 days the pain in the involved area progressively worsened. Pain is constant. Patient initially went to [facility] then sent to our emergency department for further evaluation. No trauma. No fever. Pain is well localized. No radiation. No penile pain testicular pain or drainage. Patient rates pain 10 out of 10. He denies history of the same. Patient voices no other complaints or concerns at this time. Portions of this note were created with voice recognition technology. There may be grammatical, spelling, punctuation or sound alike errors Timing/Duration: day(s) (2 days ago) Activities at Onset: none Quality: aching Abdominal Pain Onset Location: other (Left groin area) Pain Radiation: no radiation Severity of Pain-Max: moderate Severity of Pain-Current: mild Modifying Factors: Improves With: other (Palpation worsens symptoms.) Associated Symptoms: denies symptoms Previous symptoms: no prior history Allergies/Adverse Reactions: bupropion Allergy (Verified 07/20/22 15:43) fentanyl Allergy (Verified 07/20/22 15:43) propranolol Allergy (Verified 07/20/22 15:43) lisinopril Adverse Reaction (Severe, Verified 07/20/22 15:43) THROAT SWELLING Home Medications: Clonidine HCl 0.1 mg [Clonidine 0.1 mg Tablet] 0.2 mg PO BID 11/06/21 [History] Cyclobenzaprine HCl 10 mg [Cyclobenzaprine 10 MG] 10 mg PO TID 11/06/21 [History] Famotidine 20 mg [Pepcid 20 MG] 20 mg PO Q12H 11/06/21 [History] Gabapentin [Neurontin ] 600 mg PO TID 11/06/21 [History] Oxycodone HCl 5 mg Ir [Oxy-IR 5 MG] 15 mg PO UD 11/06/21 [History] HydrALAzine HCL 25 MG TAB [Apresoline 25 MG TABLET] 25 mg PO Q8H 02/05/22 [History] dilTIAZem HCL [Diltiazem 24Hr ER (Xr)] 180 mg PO DAILY 02/05/22 [History] Bupropion HCl Xl 150 mg [Wellbutrin XL 150 MG] 150 mg PO DAILY 07/20/22 [History] Hx Tetanus, Diphtheria Vaccination/Date Given: No Hx Influenza Vaccination/Date Given: No Hx Pneumococcal Vaccination/Date Given: No Immunizations Up to Date: No Travel Risk - International Travel Have you traveled outside of the country in past 3 weeks: No - Coronavirus Screening Are you exhibiting any of the following symptoms?: No Close contact with a COVID-19 positive Pt in past 14-21 Days: No - Vaccine Status Have you recieved a Covid-19 vaccination: Yes Stage Electrician: Zeenoh - Vaccination Dates Date of 2cond Vaccination (if applicable): unknown - Review of Systems Constitutional: No Symptoms, No Fever, No Chills Eyes: No Symptoms Ears, Nose, & Throat: No Symptoms Respiratory: No Symptoms, No Cough, No Dyspnea Cardiac: No Symptoms, No Chest Pain, No Edema, No Syncope Abdominal/Gastrointestinal: No Symptoms, No Abdominal Pain, No Nausea, No Vomiting, No Diarrhea Genitourinary Symptoms: No Symptoms, No Dysuria Musculoskeletal: No Symptoms, No Back Pain, No Neck Pain Skin: No Symptoms, No Rash Neurological: No Symptoms, No Dizziness, No Focal Weakness, No Sensory Changes Psychological: No Symptoms Endocrine: No Symptoms Hematologic/Lymphatic: No Symptoms Immunological/Allergic: No Symptoms All Other Systems: Reviewed and Negative - Past Medical History Pertinent Past Medical History: Yes Neurological History: Migraines ENT History: No Pertinent History Cardiac History: Hypertension Respiratory History: No Pertinent History Endocrine Medical History: No Pertinent History Musculoskeletal History: Other GI Medical History: No Pertinent History History: No Pertinent History Psycho-Social History: No Pertinent History Other Medical History: SPINAL INJURY. angioedema r/t lisinopril, intubated and tx to [facility] - Past Surgical History Past Surgical History: Yes Neuro Surgical History: Other Cardiac: No Pertinent History Respiratory: No Pertinent History Gastrointestinal: Other Genitourinary: No Pertinent History Male Surgical History: No Pertinent History Other Surgical History: COLOSECTOMY - Social History Smoking Status: Never smoker How long have you smoked: 2019 Exposure to second hand smoke: No Drug Use: none Patient Lives Alone: No Significant Family History: no pertinent family hx - Nursing Vital Signs Nursing Vital Signs: Initial Vital Signs Temperature 97.1 F 07/20/22 15:36 Pulse Rate 124 H 07/20/22 15:36 Respiratory Rate 22 07/20/22 15:36 Blood Pressure 137/101 07/20/22 15:36 O2 Sat by Pulse Oximetry 96 07/20/22 15:36 Pain Scale Pain Intensity 10 - Physical Exam General Appearance: no apparent distress, alert Eye Exam: PERRL/EOMI, eyes nml inspection Ears, Nose, Throat Exam: normal ENT inspection, pharynx normal, moist mucous membranes Neck Exam: normal inspection, non-tender, supple, full range of motion Respiratory Exam: normal breath sounds, lungs clear, No respiratory distress Cardiovascular Exam: regular rate/rhythm, normal heart sounds, normal peripheral pulses Gastrointestinal/Abdomen Exam: soft, No tenderness, No mass Male Genitalia Exam: normal genitalia, other (Left groin area appears to have a reactive lymph node. Palpation to this mass reproduces patient's symptomology.) Rectal Exam: deferred Back Exam: normal inspection, normal range of motion, No CVA tenderness, No vertebral tenderness Extremity Exam: normal inspection, normal range of motion, pelvis stable Neurologic Exam: alert, oriented x 3, cooperative, normal mood/affect, nml cerebellar function, sensation nml, No motor deficits Skin Exam: normal color, warm, dry Lymphatic Exam: No adenopathy SpO2 Interpretation: normal SpO2: 96 O2 Delivery: Room Air - Course Nursing assessment & vital signs reviewed: Yes Ordered Tests: Active Orders 24 hr Category Date Time Status AMA [Release AMA] OM.NOW Care 07/20/22 21:32 Active ABDOMEN AND PELVIS W/0 CONTRAS [CT] Stat Exams 07/20/22 18:32 Taken CBC W DIFF Stat Lab 07/20/22 18:45 Completed CMP Stat Lab 07/20/22 18:45 Completed Medication Summary Discontinued Medications Generic Name Dose Route Start Last Admin Trade Name Araceli PRN Reason Stop Dose Admin Morphine Sulfate 4 mg 07/20/22 18:32 07/20/22 18:53 Morphine Sulfate 4 Mg/Ml Injection IV 07/20/22 18:33 4 mg STAT ONE Administration Morphine Sulfate Confirm 07/20/22 18:48 Morphine Sulfate 4 Mg/Ml Injection Administered 07/20/22 18:49 Dose 4 mg .ROUTE .STK-MED ONE Ondansetron HCl 4 mg 07/20/22 18:32 07/20/22 18:53 Ondansetron Hcl 4 Mg/2 Ml Vial IV 07/20/22 18:33 4 mg STAT ONE Administration Ondansetron HCl Confirm 07/20/22 18:48 Ondansetron Hcl 4 Mg/2 Ml Vial Administered 07/20/22 18:49 Dose 4 mg .ROUTE .STK-MED ONE Lab/Rad Data: Laboratory Result Diagrams 07/20/22 18:45 07/20/22 18:45 Laboratory Results 07/20/22 07/20/22 Range/Units 18:45 18:45 WBC 10.9 H (4.0-10.5) x10^3/uL RBC 5.17 (4.1-5.6) x10^6/uL Hgb 14.3 (12.5-18.0) g/dL Hct 43.7 (42-50) % MCV 84.5 (78-100) fL MCH 27.7 (26-32) pg MCHC 32.7 (32-36) g/dL RDW 13.3 (11.5-14.0) % Plt Count 265 (150-450) x10^3/uL MPV 9.2 (7.5-11.0) fL Gran % 70.2 H (36.0-66.0) % Immature Gran % (Auto) 0.5 H (0.00-0.4) % Nucleat RBC Rel Count 0.0 (0.00-0.1) % Eos # (Auto) 0.08 (0-0.5) x10^3/uL Immature Gran # (Auto) 0.05 H (0.00-0.03) x10^3u/L Absolute Lymphs (auto) 2.32 (1.0-4.6) x10^3/uL Absolute Monos (auto) 0.78 (0.0-1.3) x10^3/uL Absolute Nucleated RBC 0.00 (0.00-0.01) x10^3u/L Lymphocytes % 21.2 L (24.0-44.0) % Monocytes % 7.1 (0.0-12.0) % Eosinophils % 0.7 (0.00-5.0) % Basophils % 0.3 (0.0-0.4) % Absolute Granulocytes 7.66 H (1.4-6.9) x10^3/uL Basophils # 0.03 (0-0.4) x10^3/uL Sodium 138 (137-145) mmol/L Potassium 4.3 (3.5-5.1) mmol/L Chloride 102 (98-107) mmol/L Carbon Dioxide 28 (22-30) mmol/L Anion Gap 13.3 (5-15) MEQ/L BUN 10 (9-20) mg/dL Creatinine 0.64 L (0.66-1.25) mg/dL Estimated GFR > 60.0 ML/MIN Glucose 88 (74-106) mg/dL Calcium 9.4 (8.4-10.2) mg/dL Total Bilirubin 0.50 (0.2-1.3) mg/dL AST 22 (17-59) U/L ALT 25 (0-50) U/L Alkaline Phosphatase 103 (38-126) U/L Serum Total Protein 7.4 (6.3-8.2) g/dL Albumin 4.6 (3.5-5.0) g/dL - Progress Progress: improved Progress Note: Patient received morphine for pain control. However pain improved but recurred. CT scan does not explain patient's pain. CT scan essentially nonremarkable. Laboratory work-up essentially unremarkable. Patient has appears to be a reactive lymph node in the left groin area which which is 07/20/22 21:[address] Nick Alvarez. Dr. Alvarez reviewed the CAT scan himself. He feels the patient's symptoms is emanating from a reactive lymph node. Dr. Alvarez advised a ultrasound of the involved area to be performed in the morning. Results to be sent to Dr. Nick Alvarez. Kim will follow up with patient in his office. No indication for further work-up. Patient states he is comfortable. Patient requesting discharge. Will discharge home. He voices no other complaints concerns at this time. We have scheduled an outpatient ultrasound to be performed at 9 AM tomorrow morning. Patient agrees to follow-up for his ultrasound as planned. He voices no other complaints or concerns at this time. Portions of this note were created with voice recognition technology. There may be grammatical, spelling, punctuation or sound alike errors 07/20/22 23:06 Counseled pt/family regarding: lab results, diagnosis, need for follow-up, rad results - Departure Departure Disposition: Home Clinical Impression: Inguinal pain, Left groin mass Condition: Stable Critical Care Time: No Referrals: EVA GUZMAN, 3D TECHNOLOGIST [Primary Care Provider] - Follow up/PCP as directed Additional Instructions: Discharge/Care Plan RAMIREZ VILLAR was seen on 07/20/22 in the Emergency Room. The patient was counseled regarding Diagnosis,Lab results, Imaging studies, need for follow up and when to return to the Emergency Room. Prescriptions given: Discharge Note I have spoken with the patient and/or caregivers. I have explained the patient's condition, diagnosis and treatment plan based on the information available to me at this time. I have answered the patient's and/or caregiver's questions and addressed any concerns. The patient and/or caregivers have as good understanding of the patient's diagnosis, condition and treatment plan as can be expected at this point. The vital signs have been stable. The patient's condition is stable and appropriate for discharge from the emergency department. The patient will pursue further outpatient evaluation with the primary care physician or other designated or consulting physician as outlined in the discharge instructions. The patient and/or caregivers are agreeable to this plan of care and follow-up instructions have been explained in detail. The patient and/or caregivers have received these instruction. The patient/and or caregivers are aware that any significant change in condition or worsening of symptoms should prompt an immediate return to this or the closest emergency department or call 911.
[2022-07-20] MEDS ORDERED: MORPHINE SULFATE 4 MG INJ ONE ×2 (18:48→23:28)
[2022-07-20] MEDS ORDERED: Zofran 4 MG/2 ML VIAL ONE (18:48)
[2022-07-20 18:53] LABS: Absolute Neutrophil Ct (ANC) 7.66 x10^3/uL (1.4-6.9); Basophil (Absolute #) 0.03 x10^3/uL (0-0.4); Eosinophil % 0.7 % (0.00-5.0); Eosinophil (Absolute #) 0.08 x10^3/uL (0-0.5); Hematocrit 43.7 % (42-50); Hemoglobin 14.3 g/dL (12.5-18.0); Lymphocyte (Absolute #) 2.32 x10^3/uL (1.0-4.6); Lymphocytes % 21.2 % (24.0-44.0); Mean Cell Volume 84.5 fL (78-100); Mean Corpuscular Hemoglobin 27.7 pg (26-32); Mean Corpuscular Hgb Concent. 32.7 g/dL (32-36); Mean Platelet Volume 9.2 fL (7.5-11.0); Monocyte (Absolute #) 0.78 x10^3/uL (0.0-1.3); Monocytes % 7.1 % (0.0-12.0); Neutrophil % 70.2 % (36.0-66.0); Platelet Count 265 x10^3/uL (150-450); Red Blood Count 5.17 x10^6/uL (4.1-5.6); Red Cell Distribution Width 13.3 % (11.5-14.0); White Blood Count 10.9 x10^3/uL (4.0-10.5)
[2022-07-20 19:08] LABS: ALBUMIN 4.6 g/dL (3.5-5.0); ALKALINE PHOSPHATASE 103 U/L (38-126); ANION GAP 13.3 MEQ/L (5-15); BLOOD UREA NITROGEN 10 mg/dL (9-20); CHLORIDE 102 mmol/L (98-107); Calcium 9.4 mg/dL (8.4-10.2); Carbon Dioxide 28 mmol/L (22-30); Creatinine 1 0.64 mg/dL (0.66-1.25); EST GLOMERULAR FILTRATION RATE > 60.0 ML/MIN; Glucose 88 mg/dL (74-106); Potassium 4.3 mmol/L (3.5-5.1); SGOT/AST 22 U/L (17-59); SGPT/ALT 25 U/L (0-50); SODIUM 138 mmol/L (137-145); Total Protein 7.4 g/dL (6.3-8.2)
[2022-07-20 23:20] VITALS: BP 130/68; PULSE 98; O2SAT 97
--- NOTE | 2022-07-21 08:47 | XRAY ---
Indication: Left lower quadrant pain 3 days. Multiple contiguous axial images obtained through the abdomen and pelvis without contrast. Comparison: May 06, 2022 Lung bases now demonstrates bibasilar subsegmental atelectasis/scarring. No infiltrate or effusion. Heart not enlarged. Noncontrasted stomach and bowel loops nonobstructed with normal appendix. There is now mild diffuse scattered colonic fecal debris throughout including rectum. Again cholecystectomy. No free fluid/air. Remaining liver, pancreas, spleen, adrenal glands, kidneys, ureters, and bladder are unremarkable for noncontrast exam. Again minimal aortic calcifications without AAA. Osseous structures intact again with mild lumbosacral junction degenerative changes. New 1.2 x 1.6 cm left inguinal lymph node presumed inflammatory and reactive. Impression: 1. New diffuse fecal stasis. 2. New small inflammatory/reactive left inguinal lymph node. 3. Remaining CT abdomen/pelvis without contrast exam is negative.
== END 2022-07-20 23:42 | disposition home or self-care (01) ==
LOC: ED 15:01
DX: R19.04 Left lower quadrant abdominal swelling, mass and lump (principal); R10.32 Left lower quadrant pain; I10 Essential (primary) hypertension; G82.20 Paraplegia, unspecified; Z79.891 Long term (current) use of opiate analgesic; Z79.899 Other long term (current) drug therapy
CPT/HCPCS: 36415; 74176; 80053; 85025; 96374; 96375; 99284; J2270; J2405

== ENCOUNTER 2023-01-15 10:25 | Emergency (ER) | payer OTHER ==
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
--- NOTE | 2023-01-15 11:39 | XRAY ---
Indication: Pain following fall. Multiple contiguous axial images obtained through the lumbar spine appears sagittal and coronal reformatted images obtained. Comparison: CT abdomen/pelvis July 20, 2022 Axial images again negative for acute fracture, suspicious bony lesions, or spinal canal stenosis. Facets and SI joints are symmetric. Sagittal and coronal reformatted images again demonstrates normal alignment with minimal L5-S1 disc space narrowing. No acute compression fractures of fixation. Visualized noncontrasted soft tissues again demonstrate minimal aortic calcifications. Impression: Stable L5-S1 disc space narrowing and minimal aortic calcifications. No new/acute findings.
--- NOTE | 2023-01-15 11:47 | XRAY ---
Indication: Thumb pain following fall. Comparison: None 3 view left hand demonstrates normal bones, articulation, and soft tissues.
[2023-01-15 12:08] VITALS: BP 158/98; PULSE 88; O2SAT 97
== END 2023-01-15 12:08 | disposition home or self-care (01) ==
LOC: ED 10:25
DX: S60.222A Contusion of left hand, initial encounter (principal); S30.0XXA Contusion of lower back and pelvis, initial encounter; W19.XXXA Unspecified fall, initial encounter; G82.22 Paraplegia, incomplete; T14.8XXS Other injury of unspecified body region, sequela; Z99.3 Dependence on wheelchair; I10 Essential (primary) hypertension; Z79.891 Long term (current) use of opiate analgesic; Z79.899 Other long term (current) drug therapy
CPT/HCPCS: 72131; 73130; 99283

== ENCOUNTER 2023-02-08 16:37 | Emergency (ER) | payer OTHER ==
[2023-02-08 16:57] VITALS: PULSE 89
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
[2023-02-08 16:59] VITALS: O2SAT 95
[2023-02-08] MEDS ORDERED: Hydromorphone 1 mg/ml Injection IM ONE (17:50)
[2023-02-08] MEDS ORDERED: Adacel Vial IM ONE ×2 (17:50→17:56)
[2023-02-08] MEDS ORDERED: Hydromorphone 1 mg/ml Injection ONE (17:56)
[2023-02-08 18:06] VITALS: BP 140/90
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
== END 2023-02-08 18:10 ==
LOC: ED 16:37
DX: S60.222A Contusion of left hand, initial encounter (principal); V40.5XXA Car driver injured in collision with pedestrian or animal in traffic accident, initial encounter; M79.604 Pain in right leg; M79.605 Pain in left leg; I10 Essential (primary) hypertension; Z79.891 Long term (current) use of opiate analgesic; Z79.899 Other long term (current) drug therapy; Z23 Encounter for immunization
CPT/HCPCS: 73130; 73590; 90471; 90715; 96372; 99285; J1170